=== PATIENT | female | born 1970 | race Hispanic/Latino ===

== ENCOUNTER 2019-04-03 18:23 | Emergency (ER) | payer OTHER, SELFPAY ==
[2019-04-03] MEDS ORDERED: KETOROLAC 30 MG/ML INJ ONE (19:34)
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
[2019-04-03 19:57] VITALS: BP 135/87; TEMP 97.9; O2SAT 98
== END 2019-04-03 19:46 | disposition home or self-care (01) ==
LOC: ER 18:23
DX: S13.9XXA Sprain of joints and ligaments of unspecified parts of neck, initial encounter (principal); M54.5 Low back pain; M62.830 Muscle spasm of back; V49.9XXA Car occupant (driver) (passenger) injured in unspecified traffic accident, initial encounter; Z88.6 Allergy status to analgesic agent; Z88.1 Allergy status to other antibiotic agents; Z88.0 Allergy status to penicillin
CPT/HCPCS: 72040; 96372; 99283

== ENCOUNTER 2020-11-23 16:53 | Observation (INO) | payer OTHER, SELFPAY ==
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
[2020-11-23 19:26] LABS: Protime INR 0.88
[2020-11-23 19:28] LABS: Absolute Lymphocytes (CBC) 2.5 K/uL (0.7-4.9); Basophils % 0.9 % (0-1.3); Hematocrit 40.3 % (36.0-45.0); Lymphocytes % 33.4 % (15.3-44.8); RBC Red Blood Cell Count 4.61 M/uL (3.86-4.86)
[2020-11-23 19:35] LABS: ALT/SGPT 29 U/L (12-78); AST/SGOT 16 U/L (15-37); Albumin 3.6 g/dL (3.4-5.0); Alkaline Phosphatase 91 U/L (45-117); BUN Blood Urea Nitrogen 12 mg/dL (7-18); Bicarbonate 28 mmol/L (21-32); Bilirubin Direct < 0.1 mg/dL (0-0.2); Bilirubin Total 0.2 mg/dL (0.2-1.0); Glucose Level 104 mg/dL (74-106); Lipase 99 U/L (73-393); Magnesium 2.3 mg/dL (1.8-2.4); NT PRO-BNP 65 pg/mL (<125); Potassium 3.8 mmol/L (3.5-5.1); Protein, Total 7.4 g/dL (6.4-8.2); Sodium Level 143 mmol/L (136-145); Troponin (Emerg Dept Use Only) < 0.02 ng/mL (0.0-0.045)
[2020-11-23] MEDS ORDERED: NITROGLYCERIN 0.4 MG/TAB SL ONE (20:08)
[2020-11-23] MEDS ORDERED: ASPIRIN 81 MG CHEWABLE TABLET ONE (20:08)
[2020-11-23] MEDS ORDERED: METOPROLOL TAR 25 MG TAB ONE (20:55)
--- NOTE | 2020-11-23 21:12 | ER ---
Nurse's Notes [facility] Name: Haylee Bethea Age: 50 yrs Sex: Female : 1970 Arrival Date: 11/23/2020 Time: 17:03 Bed 17 Private MD: Diagnosis: Angina pectoris, unspecified Presentation: 11/23 17:03 Chief complaint: Patient states: Midsternal chest pain radiating to the L arm, L ca1 shoulder started x 3 days. Coronavirus screen: Client denies travel out of the [place] in the last 14 days. At this time, the client does not indicate any symptoms associated with coronavirus-19. Ebola Screen: Patient negative for fever greater than or equal to 101.5 degrees Fahrenheit, and additional compatible Ebola Virus Disease symptoms Patient denies exposure to infectious person. Patient denies travel to an Ebola-affected area in the 21 days before illness onset. No symptoms or risks identified at this time. Initial Sepsis Screen: Does the patient meet any 2 criteria? No. Patient's initial sepsis screen is negative. Does the patient have a suspected source of infection? No. Patient's initial sepsis screen is negative. Risk Assessment: Do you want to hurt yourself or someone else? Patient reports no desire to harm self or others. Onset of symptoms was November 23, 2020. 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 - Social history:: Smoking status: Patient denies any tobacco usage or history of. Screenin:09 Abuse screen: Denies threats or abuse. Nutritional screening: No deficits noted. jd3 Tuberculosis screening: No symptoms or risk factors identified. Fall Risk Ambulatory Aid- None/Bed Rest/Nurse Assist (0 pts). Gait- Normal/Bed Rest/Wheelchair (0 pts) Mental Status- Oriented to own ability (0 pts). Total Alfonso Fall Scale indicates No Risk (0-24 pts). Assessment: 18:55 General: Appears in no apparent distress. uncomfortable, Behavior is calm, cooperative, jd3 appropriate for age. Pain: Complains of pain in chest Pain radiates to back and left shoulder and left arm Quality of pain is described as pressure, Pain began 2-3 days ago. Neuro: Level of Consciousness is awake, alert, obeys commands, Oriented to person, place, time, situation. Cardiovascular: Capillary refill < 3 seconds Thorax Rhythm is regular. Respiratory: Reports shortness of breath on exertion Airway is patent Respiratory effort is even, unlabored, Respiratory pattern is regular, symmetrical, Denies cough. GI: Reports nausea, Patient currently denies vomiting. : No signs and/or symptoms were reported regarding the genitourinary system. EENT: No signs and/or symptoms were reported regarding the EENT system. Derm: Skin is intact, Skin is dry, Skin is normal, Skin temperature is warm. Musculoskeletal: Circulation, motion, and sensation intact. Range of motion: intact in all extremities. 20:39 Reassessment: reports pain is back, 5/10, provider notified, received VO to repeat em nitro x 1. 21:21 Reassessment: Patient appears in no apparent distress at this time. Patient and/or em family updated on plan of care and expected duration. Pain level reassessed. Patient is alert, oriented x 3, equal unlabored respirations, skin warm/dry/pink. Patient denies pain at this time. Patient states feeling better. Patient states symptoms have improved. Vital Signs: 17:03 BP 168 / 85; Pulse 88; Resp 16 S; Temp 97.8(TE); Pulse Ox 98% on R/A; Weight 86.64 kg ca1 (R); Height 5 ft. 11 in. (180.34 cm) (R); Pain 6/10; 19:07 BP 162 / 68; Pulse 79; Resp 17 S; Pulse Ox 98% on R/A; jd3 19:40 BP 175 / 77; Pulse 78; Resp 18; Pulse Ox 99% on R/A; em 20:40 BP 170 / 72; Pulse 79; Resp 18; Pulse Ox 98% on R/A; Pain 5/10; em 21:21 BP 139 / 62; Pulse 78; Resp 20; Pulse Ox 98% on R/A; Pain 0/10; em 22:00 BP 158 / 74; Pulse 75; Resp 18; Temp 98.6(O); Pulse Ox 99% on R/A; Pain 0/10; em 17:03 Body Mass Index 26.64 (86.64 kg, 180.34 cm) ca1 ED Course: 17:03 Patient arrived in ED. am2 17:05 Triage completed. ca1 17:07 Arm band placed on right wrist. ca1 18:35 Sergey Santizo PA is PHCP. cp 18:35 Sergey Barrett MD is Attending Physician. cp 18:47 Akira Serrano, CHARAN is Primary Nurse. jd3 18:52 XRAY Chest (1 view) In Process Unspecified. EDMS 19:00 Inserted saline lock: 20 gauge in right antecubital area, using aseptic technique. jd3 Blood collected. Patient maintains SpO2 saturation greater than 95% on room air. 19:10 Patient has correct armband on for positive identification. Placed in gown. Bed in low jd3 position. Call light in reach. Side rails up X 1. traffic monitor specialist on. Pulse ox on. NIBP on. 20:36 Primary Nurse role handed off by Akira Serrano RN sg 20:39 Raymond Tyler, CHARAN is Primary Nurse. em 21:11 Milton Sims MD is Hospitalizing Provider. cp 22:24 No provider procedures requiring assistance completed. Patient admitted, IV remains in em place. Administered Medications: 19:50 Drug: Nitroglycerin 0.4 mg Route: Sublingual; em 19:55 Follow up: Response: No adverse reaction; Marked relief of symptoms; Pain is decreased em 19:50 Drug: Aspirin Chewable Tablet 324 mg Route: PO; em 19:55 Follow up: Response: No adverse reaction em 20:39 Drug: Metoprolol 25 mg Route: PO; em 21:21 Follow up: Response: No adverse reaction em 20:44 Drug: Nitroglycerin 0.4 mg Route: Sublingual; em 21:21 Follow up: Response: No adverse reaction; Marked relief of symptoms; Pain is decreased em Outcome: 21:12 Decision to Hospitalize by Provider. cp 22:24 Admitted to Tele accompanied by tech, via wheelchair, room 423, with chart, Report em called to CHARAN Zurita 22:24 Condition: improved 22:24 Instructed on the need for admit, Demonstrated understanding of instructions. 22:26 Patient left the ED. em Signatures: Dispatcher [employer] Geovany Powers, RN RN Raymond Maurer RN RN em Sergey Santizo PA PA cp Moreno, Amanda am2 Davies, Jonathon, RN RN jd3 Violette Gallegos RN RN ca1
--- NOTE | 2020-11-23 21:13 | EDPHYS ---
Physician Documentation [facility] Name: Haylee Bethea Age: 50 yrs Sex: Female : 1970 Arrival Date: 11/23/2020 Time: 17:03 Bed 17 Private MD: ED Physician Sergey Barrett HPI: 11/23 19:00 This 50 yrs old Female presents to ER via Ambulatory with complaints of Chest cp Pain. 19:00 The patient or guardian reports chest pain that is located primarily in the substernal cp area. 19:00 Onset: 3 day(s) ago. The pain radiates to both shoulders, back. Associated signs and cp symptoms: Pertinent positives: shortness of breath, Pertinent negatives: abdominal pain, cough, diaphoresis, lower extremity pain, lower extremity swelling, recent travel. The chest pain is described as a pressure. Duration: The patient or guardian reports a single episode, that is still ongoing, and unchanged. STUMP BLOWER: 17:07 LMP N/A - Irregular menses ca1 Historical: - Allergies: 17:07 Bactrim; ca1 17:07 PENICILLINS; ca1 17:07 Sulfa (Sulfonamide Antibiotics); ca1 - Home Meds: 17:07 Aspirin Oral [Active]; ca1 - PMHx: 17:07 None; ca1 - PSHx: 17:07 Cholecystectomy; ca1 - Immunization history:: Pneumococcal vaccine is not up to date, Flu vaccine is up to date. - Social history:: Smoking status: Patient denies any tobacco usage or history of. ROS: 19:05 Constitutional: Negative for body aches, chills, fever, poor PO intake. cp 19:05 Eyes: Negative for injury, pain, redness, and discharge. cp 19:05 ENT: Negative for ear pain, sore throat, difficulty swallowing, difficulty handling secretions. 19:05 Cardiovascular: Positive for chest pain, of the substernal, Negative for edema, palpitations. 19:05 Respiratory: Positive for shortness of breath, at rest. Negative for cough, wheezing. 19:05 Abdomen/GI: Negative for abdominal pain, nausea, vomiting, and diarrhea. 19:05 Back: Positive for radiated pain, of the thoracic area. 19:05 Skin: Negative for rash. 19:05 Neuro: Negative for altered mental status, headache, syncope, weakness. 19:05 All other systems are negative. Exam: 17:10 ECG was reviewed by the Attending Physician. cp 19:10 Constitutional: The patient appears in no acute distress, alert, awake, cp non-diaphoretic, non-toxic, well developed, well nourished. 19:10 Head/Face: Normocephalic, atraumatic. cp 19:10 Eyes: Periorbital structures: appear normal, Conjunctiva: normal, no exudate, no injection, Sclera: no appreciated abnormality, Lids and lashes: appear normal, bilaterally. 19:10 ENT: External ear(s): are unremarkable, Nose: is normal, Mouth: Lips: moist, Oral mucosa: pink and intact, moist, Posterior pharynx: Airway: no evidence of obstruction, patent. 19:10 Neck: ROM/movement: is normal, is supple, without pain, no range of motions limitations, no nuchal rigidity. 19:10 Chest/axilla: Inspection: normal, Palpation: is normal, no crepitus, no tenderness. 19:10 Cardiovascular: Rate: normal, Rhythm: regular, Pulses: Pulses are 2+ in right radial artery and left radial artery. Edema: is not appreciated, JVD: is not appreciated. 19:10 Respiratory: the patient does not display signs of respiratory distress, Respirations: normal, no use of accessory muscles, no retractions, labored breathing, is not present, Breath sounds: are clear throughout, no decreased breath sounds, no stridor, no wheezing. 19:10 Abdomen/GI: Inspection: abdomen appears normal, Palpation: abdomen is soft and non-tender, in all quadrants. 19:10 Back: pain, that is mild, of the thoracic area, ROM is normal. 19:10 Skin: no rash present. 19:10 Neuro: Orientation: to person, place \\T\\ time. Mentation: is normal, Motor: moves all fours, strength is normal, Sensation: is normal. Vital Signs: 17:03 BP 168 / 85; Pulse 88; Resp 16 S; Temp 97.8(TE); Pulse Ox 98% on R/A; Weight 86.64 kg ca1 (R); Height 5 ft. 11 in. (180.34 cm) (R); Pain 6/10; 19:07 BP 162 / 68; Pulse 79; Resp 17 S; Pulse Ox 98% on R/A; jd3 19:40 BP 175 / 77; Pulse 78; Resp 18; Pulse Ox 99% on R/A; em 20:40 BP 170 / 72; Pulse 79; Resp 18; Pulse Ox 98% on R/A; Pain 5/10; em 21:21 BP 139 / 62; Pulse 78; Resp 20; Pulse Ox 98% on R/A; Pain 0/10; em 22:00 BP 158 / 74; Pulse 75; Resp 18; Temp 98.6(O); Pulse Ox 99% on R/A; Pain 0/10; em 17:03 Body Mass Index 26.64 (86.64 kg, 180.34 cm) ca1 MDM: 18:38 Patient medically screened. cp 21:15 Data reviewed: vital signs, nurses notes, lab test result(s), EKG, radiologic studies, cp plain films. 21:15 Differential diagnosis: abnormal EKG, acute myocardial infarction, pleurisy, pneumonia, cp pneumothorax, pulmonary embolus, stable angina, unstable angina. The patient was given aspirin in the Emergency Department. Counseling: I had a detailed discussion with the patient and/or guardian regarding: the historical points, exam findings, and any diagnostic results supporting the discharge/admit diagnosis, the presence of at least one elevated blood pressure reading (>120/80) during this emergency department visit, lab results, radiology results, the need for further work-up and treatment in the hospital. Response to treatment: chest pain resolved, and as a result, I will admit patient. Physician consultation: A Levi MOREIRA was called at 21:10, was contacted at 21:10, regarding admission, to the telemetry unit. patient's condition, would like consultation with Dr. DR Buchanan, would like further tests performed, Nuclear stress test ordered for the morning. 11/23 18:38 Order name: Basic Metabolic Panel; Complete Time: 19:47 cp 11/23 19:48 Interpretation: Normal except: CL 109; CA 8.3. cp 11/23 18:38 Order name: CBC with Diff; Complete Time: 19:47 cp 11/23 18:38 Order name: LFT's; Complete Time: 19:47 cp 11/23 18:38 Order name: Magnesium; Complete Time: 19:47 cp 11/23 18:38 Order name: NT PRO-BNP; Complete Time: 19:47 cp / 18:38 Order name: PT-INR; Complete Time: 19:47 cp 11/23 18:38 Order name: Troponin (emerg Dept Use Only); Complete Time: 19:47 cp / 18:38 Order name: XRAY Chest (1 view); Complete Time: 19:47 cp 11/23 18:38 Order name: Lipase; Complete Time: 19:47 cp 11/23 18:58 Order name: COVID-19 : Document "Date of Symptom Onset" if Symptomatic. cp 11/23 19:49 Order name: LAB Add On cp 11/23 19:49 Order name: D-Dimer cp 11/23 17:07 Order name: EKG; Complete Time: 17:08 ca1 11/23 17:07 Order name: EKG - Nurse/Tech; Complete Time: 17:07 ca1 11/23 18:38 Order name: Cardiac monitoring; Complete Time: 18:47 cp 11/23 18:38 Order name: IV Saline Lock; Complete Time: 19:06 cp 11/23 18:38 Order name: Labs collected and sent; Complete Time: 19:06 cp 11/23 18:38 Order name: O2 Per Protocol; Complete Time: 18:47 cp 11/23 18:38 Order name: O2 Sat Monitoring; Complete Time: 18:47 cp EC:10 Rate is 82 beats/min. Rhythm is regular. TN interval is normal. QRS interval is normal. cp QT interval is normal. T waves are Inverted in lead aVR. Interpreted by me. Reviewed by me. Administered Medications: 19:50 Drug: Nitroglycerin 0.4 mg Route: Sublingual; em 19:55 Follow up: Response: No adverse reaction; Marked relief of symptoms; Pain is decreased em 19:50 Drug: Aspirin Chewable Tablet 324 mg Route: PO; em 19:55 Follow up: Response: No adverse reaction em 20:39 Drug: Metoprolol 25 mg Route: PO; em 21:21 Follow up: Response: No adverse reaction em 20:44 Drug: Nitroglycerin 0.4 mg Route: Sublingual; em 21:21 Follow up: Response: No adverse reaction; Marked relief of symptoms; Pain is decreased em Disposition: 11/24 09:46 Co-signature as Attending Physician, Sergey Barrett MD I agree with the assessment and hong plan of care. Disposition: 11/23/20 21:12 Hospitalization ordered by Milton Sims for Observation. Preliminary diagnosis is Angina pectoris, unspecified. - Bed requested for Telemetry/MedSurg (observation). - Status is Observation. em - Condition is Stable. - Problem is new. - Symptoms have improved. Signatures: Dispatcher [employer] EDMS Love Christensen RN RN Sergey Barrett MD MD cha Munoz, Edgar, RN RN em Page, Corey, PA PA cp Acob, Violette RN RN ca1 Corrections: (The following items were deleted from the chart) 11/23 19:48 19:47 Normal except: CL 109. cp cp 21:48 21:12 Hospitalization Ordered by A Levi MOREIRA for Observation. Preliminary diagnosis is mw Angina pectoris, unspecified. Bed requested for Telemetry/MedSurg (observation). Status is Observation. Condition is Stable. Problem is new. Symptoms have improved. cp 22:06 21:48 11/23/2020 21:12 Hospitalization Ordered by A Levi MOREIRA for Observation. Preliminary diagnosis is Angina pectoris, unspecified. Bed requested for Telemetry/MedSurg (observation). Status is Observation. Condition is Stable. Problem is new. Symptoms have improved. 22:26 22:06 11/23/2020 21:12 Hospitalization Ordered by A Levi MOREIRA for Observation. em Preliminary diagnosis is Angina pectoris, unspecified. Bed requested for Telemetry/MedSurg (observation). Status is Observation. Condition is Stable. Problem is new. Symptoms have improved.
[2020-11-23] MEDS ORDERED: ENOXAPARIN 40 MG/0.4 ML SQ ONE (21:49)
[2020-11-23] MEDS: MORPHINE 4 MG/ML SYR IV PRN (23:37)
[2020-11-23] MEDS: ONDANSETRON 4 MG/2 ML VIAL IV PRN (23:37)
[2020-11-24 00:10] VITALS: BMI 40.2
[2020-11-24] MEDS ORDERED: AMLODIPINE 5 MG TAB PO ONE (00:10)
[2020-11-24 03:24] LABS: Absolute Lymphocytes (CBC) 3.2 K/uL (0.7-4.9); Basophils % 0.9 % (0-1.3); Lymphocytes % 40.1 % (15.3-44.8); RBC Red Blood Cell Count 4.37 M/uL (3.86-4.86)
[2020-11-24 03:58] LABS: BUN Blood Urea Nitrogen 10 mg/dL (7-18); Bicarbonate 31 mmol/L (21-32); Glucose Level 93 mg/dL (74-106); Potassium 3.6 mmol/L (3.5-5.1); Sodium Level 142 mmol/L (136-145)
[2020-11-24] MEDS: METOPROLOL XL 25 MG TAB PO SCH (06:00)
[2020-11-24] MEDS: AMLODIPINE 5 MG TAB PO SCH (08:00)
[2020-11-24] MEDS: ASPIRIN EC 81 MG TAB PO SCH (08:00)
[2020-11-24 08:20] LABS: Thyroid Stimulating Hormone 4.9 uIU/mL (0.360-3.740)
[2020-11-24] MEDS ORDERED: REGADENOSON 0.4 MG/5 ML SYR IV ONE (08:50)
--- NOTE | 2020-11-24 11:53 | RAD REPORT ---
EXAM DESCRIPTION: NM - Rest Stress Cardiac Imaging - 11/24/2020 11:44 am CLINICAL HISTORY: Chest pain. COMPARISON: None. TECHNIQUE: The patient was administered 10.5 mCi of Tc 99m Sestamibi prior to resting SPECT imaging of the heart. The patient was then administered 30.6 MCi of Tc 99m Sestamibi following exercise or ph armacologic stress. Multiplanar SPECT images were reviewed. FINDINGS: There is uniformity of radiotracer uptake involving the entire left ventricular myocardiu m on rest and stress images. The left ventricular ejection fraction equals 68% IMPRESSION: Negative for a myocardial perfusion defect
[2020-11-24] MEDS: MORPHINE 4 MG/ML SYR IV PRN ×2 (15:16→21:26)
[2020-11-24] MEDS: ONDANSETRON 4 MG/2 ML VIAL IV PRN ×2 (15:16→21:26)
--- NOTE | 2020-11-24 22:46 | HP ---
Date of Admission: 11/24/2020 Chief Complaint: Chest pain. 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 The patient describes her chest pain as pressure that was in the precordial region and her pain radiates to her left arm. She had little bit shortness of breath, little diaphoresis with this, so she came into the emergency room. Her blood pressure has been elevated in last 2 days when she checks it at home. She normally does not check her blood pressure, so she does not know what her blood pressure was prior to onset of this chest pain. She has taken aspirin at home and after she came to the ER, she was evaluated and she was admitted to the hospital. When I saw her this morning, she was symptom free. She was given metoprolol in the emergency room yesterday and during nighttime, her blood pressure was elevated and when nurse contacted me, amlodipine 5 mg maintenance dose was ordered during nighttime for blood pressure control. Allergies: PENICILLIN CAUSING ANAPHYLACTIC REACTION AND ALSO ALLERGIC TO BACTRIM. Medications: She does not take any medications at home except last 2 days, she has taken aspirin. Otherwise, she does not take any prescription medications. Review of Systems: Cardiovascular: As mentioned above. All other systems reviewed and negative. Social History: Negative for smoking. Use of alcohol very rarely. She has 1 drink. Family History: Father and mother with hypertension. Father with hyperlipidemia. Past Surgical History: Cholecystectomy. Past Medical History: Negative. Physical Examination: Vital Signs: This morning, temperature 97.5, pulse 66, respiratory rate 18, blood pressure 173/77, oxygen saturation 97%. Height 4 feet 11 inches, weight 199 pounds. General: Awake, alert, oriented, not in distress. HEENT: Head atraumatic, normocephalic. Conjunctivae nonerythematous. Sclerae white. Mouth, no thrush or edema noted. Ears/Nose, no mass, lesion, discharge noted. Neck: Supple. No JVD, lymph nodes, bruit, thyromegaly noted. Lungs: Bilateral good equal air entry. Clear to auscultation. No rhonchi. No rales. Heart: Normal heart sounds. No murmur or gallop. Abdomen: Soft. Bowel sounds normal. No guarding, rigidity, tenderness, mass, hepatosplenomegaly, distention, or bruit noted. Extremities: No leg edema. No calf tenderness. Skin: No rash, ulcer, cellulitis. Lymphatics: No lymph node enlargement in neck, supraclavicular, infraclavicular region. Neuro: No focal neurological deficit. Chest: Unremarkable. External Genitalia: Deferred. Rectal: Deferred. Laboratory Data: Yesterday, white count 7.5, hemoglobin 13.2, and platelet count of 240. This morning, white count 8, hemoglobin 12.5, and platelet count of 212. INR 0.88. D-dimer 443. Yesterday, sodium 143, potassium 3.8, chloride 109, bicarb 28, BUN 12, creatinine 0.60, and glucose 104. Liver function tests unremarkable. Troponin less than 0.02 x3. Lipase 99. COVID-19 test negative. EKG showed normal sinus rhythm, no acute ST-T changes. Chest x-ray showed no acute intrathoracic changes. Impression: 1. Chest pain. 2. Hypertension. Plan: We will go ahead and admit the patient to hospital for further evaluation and management of this problem. The patient's OH has been ruled out. We will go ahead and consult Cardiology. We will get a stress test and echocardiogram done today. Monitor blood pressure given the hypertensive medication, which is amlodipine and metoprolol per order. Continue aspirin and I will see tomorrow for followup. Details and plan of treatment discussed with the patient. DERRICK/ADRIANO Voice ID: [id number] MTDBernice
--- NOTE | 2020-11-25 04:36 | EKG ---
Test Date: 2020-11-23 Test Time: 16:03:40 Waiter/Waitress Bar: FRANCK MEASUREMENT RESULTS: Intervals: Rate: 82 AK: 134 QRSD: 92 QT: 386 QTc: 450 [place]: P: 57 AK: 134 QRS: -5 T: 61 INTERPRETIVE STATEMENTS: Normal sinus rhythm Normal ECG No previous ECG available for comparison Electronically Signed On 11-25-20 04:32:39 CDT by Quoc Buchanan
[2020-11-25 05:40] VITALS: O2SAT 98
[2020-11-25] MEDS: METOPROLOL XL 25 MG TAB PO SCH (06:08)
[2020-11-25] MEDS: ASPIRIN EC 81 MG TAB PO SCH (08:11)
[2020-11-25] MEDS: AMLODIPINE 5 MG TAB PO SCH (08:12)
[2020-11-25 08:13] VITALS: BP 137/68
--- NOTE | 2020-11-25 08:29 | ECHO ---
HEIGHT: 4 ft 11 in WEIGHT: 199 lb 3.2 oz DATE OF STUDY: 11/24/[address]: Shashi Sims MD 2-DIMENSIONAL: YES M.MODE: YES DOPPLER: YES COLOR FLOW: YES TDS: NO PORTABLE: NO DEFINITY: NO BUBBLE STUDY: NO DIAGNOSIS: CHEST PAIN CARDIAC HISTORY: CATHERIZATION: NO SURGERY: NO PROSTHETIC VALVE: NO PACEMAKER: NO MEASUREMENTS (cm) DIASTOLIC (NORMALS) SYSTOLIC (NORMALS) IVSd 1.0 (0.6-1.2) LA Diam 2.8 (1.9-4.0) LVEF 70% LVIDd 4.1 (3.5-5.7) LVIDs 2.5 (2.0-3.5) %FS 39% LVPWd 1.0 (0.6-1.2) Ao Diam 2.4 (2.0-3.7) 2 DIMENSIONAL ASSESSMENT: RIGHT ATRIUM: NORMAL LEFT ATRIUM: NORMAL RIGHT VENTRICLE: NORMAL LEFT VENTRICLE: NORMAL TRICUSPID VALVE: NORMAL MITRAL VALVE: NORMAL PULMONIC VALVE: NORMAL AORTIC VALVE: NORMAL PERICARDIAL EFFUSION: NONE AORTIC ROOT: NORMAL LEFT VENTRICULAR WALL MOTION: NORMAL DOPPLER/COLOR FLOW: TRACE TRICUSPID REGURGITATION. COMMENTS: TRACE TRICUSPID REGURGITATION. NO EFFUSION. NORMAL LEFT VENTRICULAR SIZE AND FUNCTION. NO WALL MOTION ABNORMALITY. TECHNOLOGIST: Maryann FLORES
--- NOTE | 2020-11-25 08:53 | TREADPHA ---
DX: CHEST PAIN Date of Study: 11/24/2020 Ht: 4' 11 " Wt: 199 lb 3.2 oz Consulting Physician: DANIEL MEDICATIONS: ASPIRIN, NORVASC, TROPROL XL HISTORY: HYPERTENSION PHYSICIAL EXAMINATION: RESTING B.P.: 147/79 RESTING H.R.: 66 RESTING EKG: SINUS RHYTHM. PROTOCOL: LEXISCAN EXERCISE TIME: 3:30 B.P. AT PEAK STRESS: 167/63 IMPRESSION: SEE NUCLEAR REPORT.
[2020-11-25 09:30] VITALS: TEMP 98
--- NOTE | 2020-11-26 05:24 | DS ---
Date of Discharge: 11/25/2020 Disposition: The patient was discharged to go home. Physical Examination: HEENT: Unremarkable. Lungs: Clear to auscultation. Heart: Sounds normal. Abdomen: Soft. Bowel sounds normal. No guarding, rigidity, tenderness, or distention. Extremities: No leg edema. Discharge Medications/instructions: 1.Continue all prior home medications. 2.Amlodipine 5 mg daily and Toprol-XL 25 mg daily. 3.Follow up at my office week after next. Final Diagnoses: 1.Chest pain. 2.Hypertension. 3.Hyperlipidemia. 4.Hypothyroidism. Hospital Course: A 50-year-old female patient admitted to the hospital with chest pain. Please see dictated H and P for more information. The patient was evaluated in the ER. She was admitted to the hospital. Her EKG was normal. Chest x-ray unremarkable. TN was ruled out by getting serial cardia c enzymes. Yesterday morning, we did Lexiscan stress test, result came back negative for any stress- induced ischemia. Echocardiogram was done, result pending. The patient was started on blood pressur e medication, metoprolol, and amlodipine, and this morning her blood pressure is under much better co ntrol. Her chest pain symptom has resolved and no other new complaints or problems reported. The saulo allen was discharged to go home in stable condition. She was made aware of slightly abnormal TSH, wh ich I would not advise any medication for it at this point, and slightly elevated cholesterol values. Results were discussed and lifestyle changes recommended which is diet, exercise, and weight. If t his will not help to improve her cholesterol, we will have to consider medication on an outpatient ba sis. Laboratory Data: Upon admission, white count 7.5, hemoglobin 13.2, platelets 240. Sodium 143, potas sium 3.8, chloride 109, bicarb 28, BUN 12, creatinine 0.60, glucose 104. Liver function tests unrema rkable. Troponin less than 0.02. Triglyceride 175, total cholesterol 202, LDL 115, HDL 52, TSH 4.9. COVID-19 test negative. DERRICK/MODL Voice ID: [id number] Report ID: [id number]
--- NOTE | 2020-11-29 10:21 | CON ---
Date of Consultation: 11/25/2020 Reason For Consultation: Chest pain. History Of Present Illness: Ms. Bethea is a 50-year-old woman without really any past significant medical history, came in with some chest pain that is partially pressure and some sharp chest pain, but that has been going on for approximately 2-3 days with some nausea, but no vomiting, no diaphores is, no shortness of breath. She does have a family history of heart disease, otherwise no significan t risk factors. Denied PND, orthopnea, pedal edema. Had some palpitations, but no syncope. Denied any fever or chills or cough. Past Medical History: Otherwise as stated above. Medications: At home include aspirin and vitamin. Review of Systems: Negative. Social History: Negative. Allergies: INCLUDE PENICILLIN AND SULFA. Physical Examination: That was done by Dr. Sims was unremarkable. Diagnostic Data: Normal. She actually had already had an echocardiogram and a stress test that were normal. Impression And Plan: Atypical chest pain, most likely gastroesophageal reflux disease in nature. No rmal echo, normal EKG, normal stress test. I am comfortable with the patient going home today and I will see her as an outp atient on an as-needed basis. LUDWIN/ADRIANO Voice ID: [id number] Report ID: [id number]
== END 2020-11-25 09:45 | disposition home or self-care (01) ==
LOC: ER 16:53 → 4TH 22:16
PROVIDERS: ADMIT Internal Medicine; ATTEND Internal Medicine
DX: R07.9 Chest pain, unspecified (principal); I10 Essential (primary) hypertension; E78.5 Hyperlipidemia, unspecified; E03.9 Hypothyroidism, unspecified; Z20.822 Contact with and (suspected) exposure to COVID-19
CPT/HCPCS: 93005; 93017; 93306; 85025 ×2; 80048 ×2; 36415; 83735; 85610; 80061; 85379; 80076; 84443; 84484 ×3; 84439; 83690; 83880; 71045; 78452; 99285; U0003; J1650; J2785; J2405 ×3; A9500; G0378

== ENCOUNTER 2021-03-14 16:51 | Emergency (ER) | payer OTHER ==
[2021-03-14] MEDS ORDERED: HYDROCODONE/APAP 10/325 TAB ONE (18:10)
--- NOTE | 2021-03-14 19:23 | ER ---
Nurse's Notes [facility] Name: Haylee Gamboa Age: 50 yrs Sex: Female : 1970 Arrival Date: 03/14/2021 Time: 16:53 Bed 24 Private MD: Shashi Sims Diagnosis: Sprain of ankle Presentation: 03/14 17:27 Chief complaint: Patient states: R ankle pain since Monday evening. Unable to put ca1 pressure on R ankle. Cannot recall any recent injury to the R ankle. Coronavirus screen: Client denies travel out of the [place] in the last 14 days. At this time, the client does not indicate any symptoms associated with coronavirus-19. Ebola Screen: Patient negative for fever greater than or equal to 101.5 degrees Fahrenheit, and additional compatible Ebola Virus Disease symptoms Patient denies exposure to infectious person. Patient denies travel to an Ebola-affected area in the 21 days before illness onset. No symptoms or risks identified at this time. Initial Sepsis Screen: Does the patient meet any 2 criteria? No. Patient's initial sepsis screen is negative. Does the patient have a suspected source of infection? No. Patient's initial sepsis screen is negative. Risk Assessment: Do you want to hurt yourself or someone else? Patient reports no desire to harm self or others. Onset of symptoms was March 14, 2021. 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 - Social history:: Smoking status: Patient denies any tobacco usage or history of. Screenin:33 Abuse screen: Denies threats or abuse. Nutritional screening: No deficits noted. ll1 Tuberculosis screening: No symptoms or risk factors identified. Fall Risk Ambulatory Aid- Crutches/Cane/Walker (15 pts). Gait- Impaired (20 pts.). Total Alfonso Fall Scale indicates Low Risk Score (25-44 pts). Fall prevention measures have been instituted. Side Rails Up X 2 Frequent Obs/Assesments occuring As available Patient and Family Educated on Fall Prevention Program and strategies. Assessment: 17:32 General: Appears in no apparent distress. Behavior is calm, cooperative, appropriate ll1 for age. Pain: Complains of pain in R ankle Quality of pain is described as aching, Aggravated by increased activity. Musculoskeletal: Circulation, motion, and sensation intact. Capillary refill < 3 seconds, Range of motion: intact in all extremities, Tenderness present in R ankle Reports pain in R ankle. 19:20 Reassessment: Patient and/or family updated on plan of care and expected duration. Pain ea level reassessed. Patient is alert, oriented x 3, equal unlabored respirations, skin warm/dry/pink. 19:35 Reassessment: Patient and/or family updated on plan of care and expected duration. Pain ea level reassessed. Patient is alert, oriented x 3, equal unlabored respirations, skin warm/dry/pink. Discharge instruction given to patient verbalized the understanding of instruction. Vital Signs: 17:27 BP 118 / 51; Pulse 75; Resp 18 S; Temp 97.5(TE); Pulse Ox 99% on R/A; Weight 87.09 kg ca1 (R); Height 4 ft. 11 in. (149.86 cm) (R); Pain 9/10; 17:27 Body Mass Index 38.78 (87.09 kg, 149.86 cm) ca1 ED Course: 16:53 Patient arrived in ED. mr 16:53 Shashi Sims MD is Private Physician. mr 17:29 Triage completed. ca1 17:30 Arm band placed on right wrist. ca1 17:32 Natalee Wei FNP-C is PHCP. kb 17:32 Sergey Barrett MD is Attending Physician. kb 17:32 Nguyen Peters, CHARAN is Primary Nurse. ll1 17:32 Patient placed in an exam room, on a stretcher. ll1 17:33 Patient has correct armband on for positive identification. Bed in low position. Call ll1 light in reach. Side rails up X 1. Cardiac monitoring not applicable on this patient. 18:23 Ankle Right 3 View XRAY In Process Unspecified. EDMS 19:34 No provider procedures requiring assistance completed. Patient did not have IV access ea during this emergency room visit. Administered Medications: 17:52 Drug: [place] (HYDROcodone-acetaminophen) 10 mg-325 mg 1 tabs Route: PO; ll1 19:03 Follow up: Response: No adverse reaction; Pain is decreased; RASS: Alert and Calm (0) ll1 Outcome: 19:22 Discharge ordered by MD. blackwell 19:35 Discharged to home ambulatory, with crutches, with family. hernando 19:35 Condition: stable 19:35 Discharge instructions given to patient, Instructed on discharge instructions, follow up and referral plans. medication usage, Demonstrated understanding of instructions, follow-up care, medications, Prescriptions given X 2. 19:43 Patient left the ED. tt3 Signatures: Dispatcher [employer] EDMS Natalee Wei, ARABELLA ESPITIA-Alix Chirinos mr ContrerasRosanna, RN RN Violette Molina RN Nguyen Delgado RN RN ll1 Drew Lomas tt3 Corrections: (The following items were deleted from the chart) 17:30 17:30 PMHx: None; ca1 ca1
--- NOTE | 2021-03-14 19:23 | EDPHYS ---
Physician Documentation [facility] Name: Haylee Gmaboa Age: 50 yrs Sex: Female : 1970 Arrival Date: 03/14/2021 Time: 16:53 Bed 24 Private MD: Shashi Sims ED Physician Sergey Barrett HPI: 03/14 19:10 This 50 yrs old Female presents to ER via Wheelchair with complaints of Ankle kb Injury. 19:10 The patient presents with decreased range of motion, pain, swelling, tenderness. The kb complaints affect the right ankle. Onset: The symptoms/episode began/occurred 5 day(s) ago. Context: The problem was sustained at an unknown location, resulted from an unknown cause, The mechanism of injury is unknown. The patient can partially bear weight on the affected extremity. the patient is able to ambulate. Associated signs and symptoms: Pertinent positives: swelling, Pertinent negatives: calf tenderness, fever, nausea, numbness, rash, tingling, vomiting, warmth, weakness. Modifying factors: The symptoms are alleviated by nothing, the symptoms are aggravated by weight bearing, movement. Severity of symptoms: At their worst the symptoms were moderate, in the emergency department the symptoms are unchanged. The patient has not experienced similar symptoms in the past. The patient has not recently seen a physician. 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 - Social history:: Smoking status: Patient denies any tobacco usage or history of. ROS: 19:08 Constitutional: Negative for fever, chills, and weight loss, Skin: Negative for injury, kb rash, and discoloration, Neuro: Negative for headache, weakness, numbness, tingling, and seizure. 19:08 MS/extremity: Positive for pain, swelling, tenderness, of the right ankle. Exam: 19:09 Constitutional: This is a well developed, well nourished patient who is awake, alert, kb and in no acute distress. Respiratory: Respirations even and unlabored. No increased work of breathing, no retractions or nasal flaring. Skin: Warm, dry with normal turgor. Normal color. Neuro: Awake and alert, GCS 15, oriented to person, place, time, and situation. Moves all extremities. Normal gait. Psych: Awake, alert, with orientation to person, place and time. Behavior, mood, and affect are within normal limits. 19:09 Musculoskeletal/extremity: Extremities: grossly normal except: noted in the right ankle: pain, swelling, tenderness, ROM: limited active range of motion due to pain, in the right ankle, Circulation is intact in all extremities. Sensation intact. Weight bearing: can bear weight with assistance only. Vital Signs: 17:27 BP 118 / 51; Pulse 75; Resp 18 S; Temp 97.5(TE); Pulse Ox 99% on R/A; Weight 87.09 kg ca1 (R); Height 4 ft. 11 in. (149.86 cm) (R); Pain 9/10; 17:27 Body Mass Index 38.78 (87.09 kg, 149.86 cm) ca1 MDM: 17:32 Patient medically screened. kb 19:08 Data reviewed: vital signs, nurses notes. Data interpreted: Pulse oximetry: on room air kb is 99 %. Interpretation: normal. Counseling: I had a detailed discussion with the patient and/or guardian regarding: the historical points, exam findings, and any diagnostic results supporting the discharge/admit diagnosis, radiology results, the need for outpatient follow up, a orthopedic surgeon, to return to the emergency department if symptoms worsen or persist or if there are any questions or concerns that arise at home. 03/14 17:36 Order name: Ankle Right 3 View XRAY kb 03/14 19:22 Order name: Walking boot; Complete Time: 19:34 kb 03/14 19:22 Order name: Crutches; Complete Time: 19:34 kb Administered Medications: 17:52 Drug: Crescent (HYDROcodone-acetaminophen) 10 mg-325 mg 1 tabs Route: PO; ll1 19:03 Follow up: Response: No adverse reaction; Pain is decreased; RASS: Alert and Calm (0) ll1 Disposition: 03/15 13:21 Co-signature as Attending Physician, Sergey Barrett MD I agree with the assessment and hong plan of care. Disposition Summary: 03/14/21 19:22 Discharge Ordered Location: Home kb Condition: Stable kb Diagnosis - Sprain of ankle kb Followup: kb - With: Emergency Department - When: As needed - Reason: Worsening of condition Followup: kb - With: Private Physician - When: 2 - 3 days - Reason: Recheck today's complaints, Continuance of care, Re-evaluation by your physician Discharge Instructions: - Discharge Summary Sheet kb - Ankle Sprain, [id number] kb Forms: - Medication Reconciliation Form kb - Thank You Letter kb - Antibiotic Education kb - Prescription Opioid Use kb - Work release form ea - Family Work Release ea Prescriptions: - Cyclobenzaprine 10 mg Oral Tablet - take 1 tablet by ORAL route every 8 hours As needed; 30 tablet; Refills: 0, kb Product Selection Permitted - Diclofenac Sodium 75 mg Oral tablet,delayed release (DR/EC) - take 1 tablet by ORAL route 2 times per day As needed; 30 tablet; Refills: 0, kb Product Selection Permitted Signatures: Dispatcher [employer] EDNatalee Palomo, ARABELLA ESPITIA-Sergey Driscoll MD MD cha Acob, Cheryl RN RN ca1 Nguyen Peters RN RN ll1 Corrections: (The following items were deleted from the chart) 03/14 17:30 17:30 PMHx: None; ca1 ca1
--- NOTE | 2021-03-14 19:46 | RAD REPORT ---
EXAM DESCRIPTION: RAD - Ankle Right 3 View - 03/14/2021 6:23 pm CLINICAL HISTORY: Pain;Swelling COMPARISON: No comparisons FINDINGS: No fracture, dislocation or periosteal reaction. No joint effusion seen. No joint space na rrowing. Moderate severity soft tissue swelling surrounds the ankle joint. Patient has a small planta r spur and minimal spurring at the Achilles attachment. IMPRESSION: Right ankle soft tissue swelling without fracture.
[2021-03-14 19:59] VITALS: BP 118/51; TEMP 97.5; O2SAT 99
== END 2021-03-14 19:43 | disposition home or self-care (01) ==
LOC: ER 16:51
DX: S93.401A Sprain of unspecified ligament of right ankle, initial encounter (principal); I10 Essential (primary) hypertension; Z88.0 Allergy status to penicillin; Z88.1 Allergy status to other antibiotic agents; Z88.2 Allergy status to sulfonamides
CPT/HCPCS: 99283

== ENCOUNTER 2021-08-31 06:52 | Emergency (ER) | payer OTHER ==
--- OUTSIDE RECORDS SUMMARY | 2021-08-31 06:55 | XMS REPORT | Continuity of Care Document ---
:1970 Author Organization [facility] t Address [address] [place] [address] [place] [id number] Care Team Providers Name Role Phone Unavailable Unavailable Unavailable Problems This patient has no known problems. Allergies, Adverse Reactions, Alerts This patient has no known allergies or adverse reactions. Medications This patient has no known medications. Procedures This patient has no known procedures. Encounters Start End Encounter Admission Attending Care Care Encounter Source Date/Time Date/Time Type Type Clinicians Facility Department ID 2021-04-06 2021-04-06 Outpatient [facility] [id number] [facility]00 [facility]00[facility] 2021-03-30 2021-03-30 Outpatient [facility] [id number] [facility] 2021-03-23 2021-03-23 Outpatient [facility] [id number] [facility] Results This patient has no known results.
[2021-08-31 07:34] LABS: Urine Blood Trace-intact (Negative); Urine Glucose Negative (Negative); Urine Protein Negative (Negative)
[2021-08-31] MEDS ORDERED: IBUPROFEN 400 MG TAB ONE (07:36)
[2021-08-31 08:29] LABS: SARS-COV-2 RT PCR POSITIVE (NEGATIVE)
[2021-08-31] MEDS ORDERED: CASIRIVIMAB/IMDEVIMAB 10 ML VIAL ONE (09:01)
[2021-08-31] MEDS ORDERED: ASPIRIN 81 MG CHEWABLE TABLET ONE (09:04)
[2021-08-31] MEDS ORDERED: AZITHROMYCIN 250 MG TAB ONE (09:04)
[2021-08-31] MEDS ORDERED: NA CHLORIDE 0.9% 1,000 ML ONE (09:05)
[2021-08-31] MEDS ORDERED: FAMOTIDINE 20 MG TAB ONE (09:05)
[2021-08-31] MEDS ORDERED: NA CHLORIDE 0.9% 500 ML ONE (09:05)
[2021-08-31] MEDS ORDERED: NA CHLORIDE 0.9% 250 ML ONE (09:10)
[2021-08-31 09:25] LABS: Absolute Lymphocytes (CBC) 0.6 K/uL (0.7-4.9); Basophils % 0.8 % (0-1.3); Hematocrit 38.7 % (36.0-45.0); Lymphocytes % 11.6 % (15.3-44.8); MPV 9.2 fL (7.6-11.3); RBC Red Blood Cell Count 4.44 M/uL (3.86-4.86)
[2021-08-31 09:34] LABS: Albumin 3.7 g/dL (3.4-5.0); Bilirubin Total 0.2 mg/dL (0.2-1.0); Potassium 3.8 mmol/L (3.5-5.1); Protein, Total 7.6 g/dL (6.4-8.2)
[2021-08-31 09:35] LABS: C-Reactive Protein 19.4 mg/L (<3.00); Ferritin 79.3 ng/mL (8-388)
[2021-08-31] MEDS ORDERED: METOPROLOL XL 50 MG TAB PO ONE (09:36)
[2021-08-31] MEDS ORDERED: ACETAMINOPHEN 500 MG TAB ONE (09:42)
--- NOTE | 2021-08-31 10:10 | EDPHYS ---
Physician Documentation [facility] Name: Haylee Gamboa Age: 51 yrs Sex: Female : 1970 Arrival Date: 08/31/2021 Time: 06:56 Bed 5 Private MD: ED Physician Sergey Barrett HPI: 08/31 07:25 This 51 yrs old Female presents to ER via Ambulatory with complaints of Fever. hong 07:25 The patient reports fever, that was measured at 100 degrees Fahrenheit. Onset: The hong symptoms/episode began/occurred 2 day(s) ago. Modifying factors: there are no obvious modifying factors. Associated signs and symptoms: Pertinent positives: cough, runny nose, sinus congestion, sore throat. Severity of symptoms: At their worst the symptoms were mild in the emergency department the symptoms are unchanged. The patient has not experienced similar symptoms in the past. 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 - Social history:: Smoking status: Reported history of juuling and/or vaping. - Family history:: not pertinent. ROS: 07:25 Constitutional: Negative for fever, chills, and weight loss, Eyes: Negative for injury, hong pain, redness, and discharge, Neck: Negative for injury, pain, and swelling, Cardiovascular: Negative for chest pain, palpitations, and edema, Abdomen/GI: Negative for abdominal pain, nausea, vomiting, diarrhea, and constipation, Back: Negative for injury and pain, : Negative for injury, bleeding, discharge, and swelling, MS/Extremity: Negative for injury and deformity, Skin: Negative for injury, rash, and discoloration, Neuro: Negative for headache, weakness, numbness, tingling, and seizure, Psych: Negative for depression, anxiety, suicide ideation, homicidal ideation, and hallucinations, Allergy/Immunology: Negative for hives, rash, and allergies, Endocrine: Negative for neck swelling, polydipsia, polyuria, polyphagia, and marked weight changes, Hematologic/Lymphatic: Negative for swollen nodes, abnormal bleeding, and unusual bruising. 07:25 ENT: Positive for sinus congestion, sore throat. Exam: 07:25 Constitutional: This is a well developed, well nourished patient who is awake, alert, hong and in no acute distress. Head/Face: Normocephalic, atraumatic. Eyes: Pupils equal round and reactive to light, extra-ocular motions intact. Lids and lashes normal. Conjunctiva and sclera are non-icteric and not injected. Cornea within normal limits. Periorbital areas with no swelling, redness, or edema. ENT: Nares patent. No nasal discharge, no septal abnormalities noted. Tympanic membranes are normal and external auditory canals are clear. Oropharynx with no redness, swelling, or masses, exudates, or evidence of obstruction, uvula midline. Mucous membranes moist. Neck: Trachea midline, no thyromegaly or masses palpated, and no cervical lymphadenopathy. Supple, full range of motion without nuchal rigidity, or vertebral point tenderness. No Meningismus. Chest/axilla: Normal chest wall appearance and motion. Nontender with no deformity. No lesions are appreciated. Cardiovascular: Regular rate and rhythm with a normal S1 and S2. No gallops, murmurs, or rubs. Normal PMI, no JVD. No pulse deficits. Respiratory: Lungs have equal breath sounds bilaterally, clear to auscultation and percussion. No rales, rhonchi or wheezes noted. No increased work of breathing, no retractions or nasal flaring. Abdomen/GI: Soft, non-tender, with normal bowel sounds. No distension or tympany. No guarding or rebound. No evidence of tenderness throughout. Back: No spinal tenderness. No costovertebral tenderness. Full range of motion. Skin: Warm, dry with normal turgor. Normal color with no rashes, no lesions, and no evidence of cellulitis. MS/ Extremity: Pulses equal, no cyanosis. Neurovascular intact. Full, normal range of motion. Neuro: Awake and alert, GCS 15, oriented to person, place, time, and situation. Cranial nerves II-XII grossly intact. Motor strength 5/5 in all extremities. Sensory grossly intact. Cerebellar exam normal. Normal gait. Psych: Awake, alert, with orientation to person, place and time. Behavior, mood, and affect are within normal limits. Vital Signs: 07:07 BP 151 / 68; Pulse 98; Resp 15; Temp 98.4(O); Pulse Ox 97% on R/A; Weight 85.28 kg (R); ll3 Height 4 ft. 11 in. (149.86 cm) (R); Pain 5/10; 08:23 BP 113 / 74; Pulse 90; Resp 16; Pulse Ox 97% on R/A; ll3 09:29 BP 148 / 66; Pulse 90; Resp 15; Pulse Ox 98% on R/A; ll3 10:30 BP 123 / 60; Pulse 85; Resp 15; Pulse Ox 97% on R/A; ll3 11:30 BP 116 / 59; Pulse 69; Resp 17; Pulse Ox 96% on R/A; ll3 07:07 Body Mass Index 37.97 (85.28 kg, 149.86 cm) ll3 MDM: 07:13 Patient medically screened. hong 07:28 Differential diagnosis: viral Infection, bacterial infection, URI, bronchitis, hong pneumonia UTI. Data reviewed: vital signs, nurses notes, lab test result(s), urinalysis. Data interpreted: athletic monitor: rate is 98 beats/min, rhythm is regular, Pulse oximetry: on room air is 97 %. Counseling: I had a detailed discussion with the patient and/or guardian regarding: the historical points, exam findings, and any diagnostic results supporting the discharge/admit diagnosis, lab results, radiology results, the need for outpatient follow up, for definitive care, an justice court judge. 08/31 07:14 Order name: COVID-19/FLU A+B/RSV (Document "Date of Onset" if Symptomatic); Complete hong Time: 08:41 08/31 07:15 Order name: Strep; Complete Time: 08:41 ll1 08/31 07:34 Order name: Urine Dipstick-Ancillary; Complete Time: 08:03 EDMS 08/31 08:27 Order name: Throat Culture EDOK 08/31 08:59 Order name: CBC with Diff; Complete Time: 09:35 hong 08/31 08:59 Order name: Comprehensive Metabolic Panel; Complete Time: 09:35 [facility] 08/31 09:02 Order name: Ferritin; Complete Time: 10:09 [facility] 08/31 09:02 Order name: CRP; Complete Time: 10:09 [facility] 08/31 07:14 Order name: Urine Dipstick-Ancillary (obtain specimen); Complete Time: 07:34 [facility] 08/31 07:15 Order name: Droplet/Contact Precautions; Complete Time: 07:15 [facility] 08/31 07:15 Order name: Labs collected and sent; Complete Time: 07:15 [facility] 08/31 07:15 Order name: O2 Per Protocol; Complete Time: 07:15 [facility] Administered Medications: 07:38 Drug: Motrin (ibuprofen) 800 mg Route: PO; ll3 08:15 Follow up: Response: No adverse reaction; Marked relief of symptoms ll3 09:20 Drug: NS 0.9% 500 ml Route: IV; Rate: bolus; Site: right antecubital; ll3 10:56 Follow up: IV Status: Completed infusion ll1 09:20 Drug: NS 0.9% 1000 ml Route: IV; Rate: 125 ml/hr; Site: right antecubital; ll3 12:10 Follow up: Response: No adverse reaction; IV Status: Completed infusion ll3 09:20 Drug: Pepcid (famotidine) 40 mg Route: PO; ll3 09:56 Follow up: Response: No adverse reaction ll3 09:20 Drug: Zithromax (azithromycin) 500 mg Route: PO; ll3 09:56 Follow up: Response: No adverse reaction ll3 09:20 Drug: Aspirin Chewable Tablet 162 mg Route: PO; ll3 09:56 Follow up: Response: No adverse reaction ll3 09:50 Drug: Tylenol 1000 mg Route: PO; ll3 11:53 Follow up: Response: No adverse reaction ll3 09:50 Drug: Lopressor (metoprolol TARTRATE) 50 mg Route: PO; ll3 11:53 Follow up: Response: No adverse reaction ll3 09:51 Drug: Casirivimab-Imdevimab Dose Pack 120 mg/mL-120 mg/mL (EUA) 1 vials Route: IV; ll3 Rate: per protocol; Site: right antecubital; 10:56 Follow up: Response: No adverse reaction; IV Status: Completed infusion; IV Intake: ll1 120ml Disposition Summary: 08/31/21 10:09 Discharge Ordered Location: Home [facility] Problem: new [facility] Symptoms: have improved [facility] Condition: Stable [facility] Diagnosis - UTI/ Urinary tract infection, site not specified hong - Fever, unspecified hong - Acute upper respiratory infection, unspecified hong - Coronavirus infection, unspecified hong - Pneumonia due to SARS-associated coronavirus [facility] Followup: hong - With: Private Physician - When: 2 - 3 days - Reason: Recheck today's complaints, Continuance of care, Re-evaluation by your physician Followup: hong - With: - When: 2 - 3 days - Reason: Recheck today's complaints, Continuance of care, Re-evaluation by your physician Discharge Instructions: - Discharge Summary Sheet hong - Fever, Adult hong - Upper Respiratory Infection, Adult hong - Cool Mist Vaporizer hong - Urinary Tract Infection, Adult, [id number] hong - Viral Respiratory Infection, [id number] hong - Cough, Adult hong - Aspirin and Your Heart [facility] - COVID-19 [facility] - COVID-19 Frequently Asked Questions [facility] - Things You Can Do to Manage Your COVID-19 Symptoms at Home - [facility] - COVID-19: Quarantine vs. Isolation - [facility] Forms: - Medication Reconciliation Form [facility] - Thank You Letter [facility] - Antibiotic Education [facility] - Prescription Opioid Use [facility] Prescriptions: - ivermectin 3 mg Oral tablet - take 5 tablet by ORAL route once daily 15 mg po daily on days 1, 3 and 5; 15 hong tablet; Refills: 0, Product Selection Permitted - albuterol sulfate 90 mcg/actuation Inhalation HFA aerosol inhaler - inhale 2 puff by INHALATION route every 6 hours; 1 Pump; Refills: 0, Product [facility] Selection Permitted - Cipro 250 mg Oral Tablet - take 1 tablet by ORAL route every 12 hours for 7 days; 14 tablet; Refills: 0, [facility] Product Selection Permitted - Pepcid 20 mg Oral Tablet - take 1 tablet by ORAL route every 12 hours for 30 days; 60 tablet; Refills: 0, [facility] Product Selection Permitted - Singulair 10 mg Oral Tablet - take 1 tablet by ORAL route At bedtime; 30 tablet; Refills: 0, Product [facility] Selection Permitted - Zithromax 500 mg Oral Tablet - take 1 tablet by ORAL route once daily for 4 days; 4 tablet; Refills: 0, [facility] Product Selection Permitted Signatures: Dispatcher [employer] EDSergey Estevez MD MD cha Lewis, Lynsay RN RN ll1 Anmol Danielson RN RN ll3 Corrections: (The following items were deleted from the chart) 07:36 07:15 Influenza Screen (A \\T\\ B)+[id number] ordered. EDMS EDMS 07:37 07:15 Influenza Screen (A ordered. EDMS EDMS
--- NOTE | 2021-08-31 10:10 | ER ---
Nurse's Notes [facility] Name: Haylee Gamboa Age: 51 yrs Sex: Female : 1970 Arrival Date: 08/31/2021 Time: 06:56 Bed 5 Private MD: Diagnosis: UTI/ Urinary tract infection, site not specified;Fever, unspecified;Acute upper respiratory infection, unspecified;Coronavirus infection, unspecified;Pneumonia due to SARS-associated coronavirus Presentation: 08/31 07:06 Onset of symptoms was August 30, 2021. ll1 07:06 Acuity: LOWELL 3 ll1 07:07 Chief complaint: Patient states: At 11 PM last night I started felling chills, body ll3 aches, and started to have a headache, pt C/O wet cough and feeling unsteady on her feet. Coronavirus screen: chills, cough unrelated to allergies, fever, headache, shaking with chills. Ebola Screen: No symptoms or risks identified at this time. Initial Sepsis Screen: Does the patient meet any 2 criteria? No. Patient's initial sepsis screen is negative. Does the patient have a suspected source of infection? No. Patient's initial sepsis screen is negative. Risk Assessment: Do you want to hurt yourself or someone else? Patient reports no desire to harm self or others. 07:07 Method Of Arrival: Ambulatory ll3 Triage Assessment: 07:07 General: Appears in no apparent distress. uncomfortable, Behavior is calm, cooperative. ll3 Pain: Complains of pain in H/A, Body aches. Neuro: Level of Consciousness is awake, alert, obeys commands, Oriented to person, place, time, situation, Gait is Pt states she feels unsteady on her feet. Reports headache weakness. Cardiovascular: Patient's skin is warm and dry. Respiratory: Airway is patent Trachea midline Respiratory effort is even, unlabored, Respiratory pattern is regular, symmetrical, Breath sounds are clear bilaterally. Parent/caregiver reports the patient having cough that is productive. Derm: Skin is pink, warm \T\ dry. Musculoskeletal:. 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 - Social history:: Smoking status: Reported history of juuling and/or vaping. - Family history:: not pertinent. Screenin:19 Abuse screen: Denies threats or abuse. Nutritional screening: No deficits noted. ll3 Tuberculosis screening: No symptoms or risk factors identified. 09:30 Fall Risk IV access (20 points). Mental Status- Oriented to own ability (0 pts). Total ll3 Alfonso Fall Scale indicates No Risk (0-24 pts). Assessment: 07:19 General: See triage assessment. ll3 08:24 Reassessment: Patient appears in no apparent distress at this time. Patient and/or ll3 family updated on plan of care and expected duration. Pain level reassessed. Patient is alert, oriented x 3, equal unlabored respirations, skin warm/dry/pink. Patient states feeling better. 09:29 Reassessment: Patient appears in no apparent distress at this time. No changes from ll3 previously documented assessment. Patient and/or family updated on plan of care and expected duration. Pain level reassessed. Patient is alert, oriented x 3, equal unlabored respirations, skin warm/dry/pink. 10:30 Reassessment: Patient appears in no apparent distress at this time. No changes from ll3 previously documented assessment. Patient and/or family updated on plan of care and expected duration. Pain level reassessed. Patient is alert, oriented x 3, equal unlabored respirations, skin warm/dry/pink. 11:30 Reassessment: Patient appears in no apparent distress at this time. No changes from ll3 previously documented assessment. Patient and/or family updated on plan of care and expected duration. Pain level reassessed. Patient is alert, oriented x 3, equal unlabored respirations, skin warm/dry/pink. Vital Signs: 07:07 BP 151 / 68; Pulse 98; Resp 15; Temp 98.4(O); Pulse Ox 97% on R/A; Weight 85.28 kg (R); ll3 Height 4 ft. 11 in. (149.86 cm) (R); Pain 5/10; 08:23 BP 113 / 74; Pulse 90; Resp 16; Pulse Ox 97% on R/A; ll3 09:29 BP 148 / 66; Pulse 90; Resp 15; Pulse Ox 98% on R/A; ll3 10:30 BP 123 / 60; Pulse 85; Resp 15; Pulse Ox 97% on R/A; ll3 11:30 BP 116 / 59; Pulse 69; Resp 17; Pulse Ox 96% on R/A; ll3 07:07 Body Mass Index 37.97 (85.28 kg, 149.86 cm) ll3 ED Course: 06:56 Patient arrived in ED. bp1 07:05 Arm band placed on Patient placed in an exam room, on a stretcher. ll1 07:06 Triage completed. ll1 07:07 Anmol Danielson RN is Primary Nurse. ll3 07:13 Sergey Barrett MD is Attending Physician. hong 07:19 Patient has correct armband on for positive identification. Bed in low position. Call ll3 light in reach. Side rails up X 1. 08:00 Urine collected: clean catch specimen, clear, COVID swab sent to lab. Flu and/or RSV ll3 swab sent to lab. Strep swab sent to lab. 09:05 Inserted saline lock: 22 gauge in right antecubital area, using aseptic technique. ll1 Blood collected. 10:09 Augustin French MD is Referral Physician. hong 12:09 No provider procedures requiring assistance completed. IV discontinued, intact, ll3 bleeding controlled, No redness/swelling at site. Pressure dressing applied. Administered Medications: 07:38 Drug: Motrin (ibuprofen) 800 mg Route: PO; ll3 08:15 Follow up: Response: No adverse reaction; Marked relief of symptoms ll3 09:20 Drug: NS 0.9% 500 ml Route: IV; Rate: bolus; Site: right antecubital; ll3 10:56 Follow up: IV Status: Completed infusion ll1 09:20 Drug: NS 0.9% 1000 ml Route: IV; Rate: 125 ml/hr; Site: right antecubital; ll3 12:10 Follow up: Response: No adverse reaction; IV Status: Completed infusion ll3 09:20 Drug: Pepcid (famotidine) 40 mg Route: PO; ll3 09:56 Follow up: Response: No adverse reaction ll3 09:20 Drug: Zithromax (azithromycin) 500 mg Route: PO; ll3 09:56 Follow up: Response: No adverse reaction ll3 09:20 Drug: Aspirin Chewable Tablet 162 mg Route: PO; ll3 09:56 Follow up: Response: No adverse reaction ll3 09:50 Drug: Tylenol 1000 mg Route: PO; ll3 11:53 Follow up: Response: No adverse reaction ll3 09:50 Drug: Lopressor (metoprolol TARTRATE) 50 mg Route: PO; ll3 11:53 Follow up: Response: No adverse reaction ll3 09:51 Drug: Casirivimab-Imdevimab Dose Pack 120 mg/mL-120 mg/mL (EUA) 1 vials Route: IV; ll3 Rate: per protocol; Site: right antecubital; 10:56 Follow up: Response: No adverse reaction; IV Status: Completed infusion; IV Intake: ll1 120ml Intake: 10:56 IV: 120ml; Total: 120ml. ll1 Outcome: 10:09 Discharge ordered by . hong 12:09 Discharged to home ambulatory, with family. ll3 12:09 Condition: stable 12:09 Discharge instructions given to patient, Instructed on discharge instructions, follow up and referral plans. medication usage, Demonstrated understanding of instructions, follow-up care, medications, Prescriptions given X 6 12:11 Patient left the ED. ll3 Signatures: Sergey Barrett MD MD cha Lewis, Lynsay RN RN ll1 Abbey Blank Lynsea, RN RN ll3
[2021-08-31 12:16] VITALS: TEMP 98.4
[2021-08-31 12:21] VITALS: BP 116/59; O2SAT 96
== END 2021-08-31 12:11 | disposition home or self-care (01) ==
LOC: ER 06:52
DX: U07.1 COVID-19 (principal); J12.82 Pneumonia due to coronavirus disease 2019; N39.0 Urinary tract infection, site not specified; I10 Essential (primary) hypertension; Z88.0 Allergy status to penicillin; Z88.1 Allergy status to other antibiotic agents; Z88.2 Allergy status to sulfonamides
CPT/HCPCS: 96365; 96361; 87070; 85025; 36415; 87081; 81003; 82728; 80053; 0241U; 86140; 99284; J7050; J7040; J7030; M0243

== ENCOUNTER 2022-02-21 03:50 | Emergency (ER) | payer BC, OTHER ==
--- OUTSIDE RECORDS SUMMARY | 2022-02-21 03:53 | XMS REPORT | Continuity of Care Document ---
:1970 Author Organization [facility] t Address [address] [place] [address] Care Team Providers Name Role Phone Marc Sims Attending Clinician Unavailable Marc Sims Admitting Clinician Unavailable Problems This patient has no known problems. Allergies, Adverse Reactions, Alerts This patient has no known allergies or adverse reactions. Medications This patient has no known medications. Procedures This patient has no known procedures. Encounters Start End Encounter Admission Attending Care Care Encounter Source Date/Time Date/Time Type Type Clinicians Facility Department ID 2021-10-06 Outpatient Sims, STLMLC STLMLC [id number] Common 13:30:46 Shashi [id number] [facility] 2021-10-06 Outpatient STLMLC STLMLC [id number] Common 13:25:05 [id number] [facility] 2021-04-06 2021-04-06 Outpatient STLMLC STLMLC [id number] Common 00:00:00 00:00:00 [facility] 2021-03-30 2021-03-30 Outpatient STLMLC STLMLC [id number] Common 00:00:00 00:00:00 [facility] 2021-03-23 2021-03-23 Outpatient STLMLC STLMLC [id number] Common 00:00:00 00:00:00 [facility] Results This patient has no known results.
--- NOTE | 2022-02-21 05:20 | ER ---
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 Coronavirus screen: cough unrelated to allergies. Ebola Screen: No symptoms or risks identified at this time. 04:11 Method Of Arrival: Ambulatory bb 04:11 Acuity: LOWELL 4 bb ED Course: 03:51 Patient arrived in ED. bp1 04:13 Triage completed. bb Administered Medications: No medications were administered Outcome: 04:14 Eloped from patient exam room, before seeing physician bb 05:19 Patient left the ED. bb Signatures: Mariana Dejesus RN RN bb Abbey Blank bp1
== END 2022-02-21 05:19 | disposition left against medical advice (07) ==
LOC: ER 03:50
DX: U07.1 COVID-19 (principal); Z53.21 Procedure and treatment not carried out due to patient leaving prior to being seen by health care provider
CPT/HCPCS: 99281; U0003

== ENCOUNTER 2022-03-12 12:23 | Emergency (ER) | payer BC ==
[2022-03-12 13:55] LABS: Absolute Lymphocytes (CBC) 2.1 K/uL (0.7-4.9); Hematocrit 41.1 % (36.0-45.0); Lymphocytes % 31.5 % (15.3-44.8); MCV 87.8 fL (80-100); RBC Red Blood Cell Count 4.68 M/uL (3.86-4.86)
--- NOTE | 2022-03-12 14:25 | RAD REPORT ---
EXAM DESCRIPTION: US - Extremity Venous Uni Ltd - 03/12/2022 2:12 pm CLINICAL HISTORY: Swelling COMPARISON: None. TECHNIQUE: Real-time sonographic evaluation of the left lower extremity deep venous system was perfo rmed. FINDINGS: Normal compressibility, flow augmentation, phasic flow and spontaneous flow is identified in the left lower extremity deep venous system. No intraluminal filling defects seen. IMPRESSION: No DVT in the left lower extremity.
[2022-03-12 14:43] LABS: Potassium 3.8 mmol/L (3.5-5.1)
--- NOTE | 2022-03-12 15:14 | ER ---
Nurse's Notes [facility] Name: Haylee Gamboa Age: 51 yrs Sex: Female : 1970 Arrival Date: 03/12/2022 Time: 12:25 Bed 13 Private MD: Diagnosis: Cellulitis of the Lower Extremity Presentation: 03/12 13:00 Chief complaint: Patient states: for about two days swelling and redness to Left leg, vg1 stated 'feels tight'. Coronavirus screen: Vaccine status: Patient reports receiving the 2nd dose of the covid vaccine. Client denies travel out of the [place] in the last 14 days. Ebola Screen: Patient denies exposure to infectious person. Patient denies travel to an Ebola-affected area in the 21 days before illness onset. Initial Sepsis Screen: Does the patient meet any 2 criteria? No. Patient's initial sepsis screen is negative. Does the patient have a suspected source of infection? No. Patient's initial sepsis screen is negative. Risk Assessment: Do you want to hurt yourself or someone else? Patient reports no desire to harm self or others. Onset of symptoms was March 10, 2022. 13:00 Method Of Arrival: Ambulatory vg1 13:00 Acuity: LOWELL 3 vg1 Triage Assessment: 13:02 General: Appears comfortable, Behavior is calm, cooperative. Pain: Complains of pain in vg1 left manzanares. 13:02 Cardiovascular: Pulses are palpable in left dorsalis pedis artery. Derm: Skin is vg1 intact, Skin is red. 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 - Social history:: Smoking status: Patient denies any tobacco usage or history of. Screenin:00 Abuse screen: Denies threats or abuse. Denies injuries from another. Nutritional jg9 screening: No deficits noted. Tuberculosis screening: No symptoms or risk factors identified. Fall Risk None identified. Assessment: 15:00 Reassessment: No changes from previously documented assessment. Patient and/or family jg9 updated on plan of care and expected duration. Pain level reassessed. Patient is alert, oriented x 3, equal unlabored respirations, skin warm/dry/pink. 15:38 Derm: Skin reddness/swelling noted to left leg Decubitus. jg9 Vital Signs: 13:00 BP 153 / 78; Pulse 79; Resp 16; Temp 97.7; Pulse Ox 100% on R/A; Weight 88.45 kg; vg1 Height 4 ft. 11 in. (149.86 cm); Pain 3/10; 15:00 BP 120 / 78; Pulse 80; Resp 12 S; Pulse Ox 97% on R/A; jg9 13:00 Body Mass Index 39.38 (88.45 kg, 149.86 cm) vg1 ED Course: 12:25 Patient arrived in ED. rg4 12:34 Ronel Tran, RN is Primary Nurse. chery 12:35 Triage completed. vg1 13:02 Arm band placed on. vg1 13:17 Montana Moscoso PA is PHCP. [facility] 13:17 Primitivo Cifuentes MD is Attending Physician. jm 13:48 Initial lab(s) drawn, by wi, sent to lab. Inserted saline lock: 20 gauge in right vg1 antecubital area, using aseptic technique. Blood collected. 14:13 US Extremity Venous Unilateral Ltd In Process Unspecified. EDMS 15:00 Patient has correct armband on for positive identification. Bed in low position. Call jg9 light in reach. 15:39 No provider procedures requiring assistance completed. jg9 15:39 IV discontinued. jg9 Administered Medications: 15:28 Drug: Doxycycline 100 mg Route: PO; jg9 15:40 Follow up: Response: No adverse reaction; Medication administered at discharge. jg9 Medication: 15:00 VIS not applicable for this client. jg9 Outcome: 15:14 Discharge ordered by . [facility] 15:39 Discharged to home ambulatory. jg9 15:39 Condition: stable 15:39 Discharge instructions given to patient, Instructed on discharge instructions, follow up and referral plans. Demonstrated understanding of instructions, follow-up care, Prescriptions given X 1. 15:40 Patient left the ED. jg9 Signatures: Dispatcher [employer] EDMS Montana Moscoso PA PA jmm Garcia, Rubi rg4 Aneta Peter RN RN vg1 Lore Gruber RN RN jg9 Aniya-StageRonel lea RN RN chery Corrections: (The following items were deleted from the chart) 12:39 12:35 Allergies: Bactrim; vg1 vg1 12:39 12:35 Allergies: PENICILLINS; vg1 vg1 12:39 12:35 Allergies: Sulfa (Sulfonamide Antibiotics); vg1 vg1 12:39 12:35 Home Meds: atorvastatin oral; vg1 vg1 12:39 12:35 Home Meds: anastrozole oral; vg1 vg1 12:39 12:35 Home Meds: Furosemide Oral; vg1 vg1 12:39 12:35 Home Meds: levothyroxine oral; vg1 vg1 12:39 12:35 Home Meds: metoprolol tartrate 50 mg Oral tab once daily; vg1 vg1 12:39 12:35 Home Meds: gabapentin oral; vg1 vg1 12:39 12:35 Home Meds: Eliquis oral; vg1 vg1 12:39 12:35 PMHx: Hypertensive disorder; vg1 vg1 12:39 12:35 PMHx: Atrial fibrillation; vg1 vg1 12:39 12:35 PMHx: Chronic obstructive lung disease; vg1 vg1 12: 12:35 PSHx: Cholecystectomy; vg1 vg1 12:39 12:35 Immunization history: Client reports receiving the 2nd dose of the Covid vaccine, vg1 vg1 12:39 12:35 Social history: Smoking status: Patient/guardian denies using tobacco, the vg1 patient reports quitting approximately 30 years ago, vg1 12:39 12:38 PMHx: Congestive heart failure; vg1 vg1 12:39 12:35 General: Appears uncomfortable, Behavior is cooperative, vg1 vg1 12:39 12:35 Pain: Complains of pain in right arm and left leg vg1 vg1 12:39 12:38 Neuro: Level of Consciousness is awake, alert, obeys commands, Oriented to vg1 person, place, time, situation, vg1 :39 12:38 Cardiovascular: Patient's skin is warm and dry. 1 1 12:33 Chief complaint: Patient's son or daughter states: has fallen three times this vg1 week and pt is on blood thinners; "she has a wound to hear Right arm and Left leg" Pt states did hit head but denies LOC. 1 : 12:33 Coronavirus screen: Vaccine status: Patient reports receiving the 2nd dose of the vg1 covid vaccine. Client denies travel out of the [place] in the last 14 days. vg1 : 12:33 Ebola Screen: Patient denies exposure to infectious person. Patient denies travel vg1 to an Ebola-affected area in the 21 days before illness onset. [facility] : 12:33 Risk Assessment: Do you want to hurt yourself or someone else? Patient reports no vg1 desire to harm self or others. [facility] : 12:33 Initial Sepsis Screen: Does the patient meet any 2 criteria? No. Patient's [facility] initial sepsis screen is negative. Does the patient have a suspected source of infection? No. Patient's initial sepsis screen is negative. [facility] 12:33 Onset of symptoms was March 08, 2022 [place] [id number] 12:33 Method Of Arrival: Wheelchair 1 1 :40 12:33 BP 158 / 53; Pulse 71bpm; Resp 18bpm; Pulse Ox 93% RA; Temp 98.4F; 58.97 kg; vg1 Height 5 ft. 6 in.; BMI: 20.9; Pain 10/10; vg1 :40 12:33 Acuity: LOWELL 3 vg1 vg1 13:04 13:02 Home Meds: Metformin Oral; vg1 vg1 13:04 13:02 PMHx: Diabetes mellitus; vg1 vg1
--- NOTE | 2022-03-12 15:15 | EDPHYS ---
Physician Documentation [facility] Name: Haylee Gamboa Age: 51 yrs Sex: Female : 1970 Arrival Date: 03/12/2022 Time: 12:25 Bed 13 Private MD: ED Physician Primitivo Cifuentes HPI: 03/12 13:18 This 51 yrs old Female presents to ER via Ambulatory with complaints of Leg jmm Swelling. 13:18 The patient presents with pain, that is acute. Onset: The symptoms/episode jmm began/occurred gradually, 3 day(s) ago. Modifying factors: The symptoms are alleviated by nothing. the symptoms are aggravated by nothing. This is a 51 year old female with a history of htn that presents to the ED with complaints of left leg swelling beginning approx 3 days ago. Patient states she recovered from COVID 2 weeks ago. States she has had some prolonged sitting. Denies chest pain or shortness of breath. . 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 - Social history:: Smoking status: Patient denies any tobacco usage or history of. ROS: 13:18 Constitutional: Negative for fever, chills, and weight loss, Cardiovascular: Negative jmm for chest pain, palpitations, and edema, Respiratory: Negative for shortness of breath, cough, wheezing, and pleuritic chest pain. 13:18 MS/extremity: Positive for pain, swelling. 13:18 All other systems are negative. Exam: 13:18 Constitutional: This is a well developed, well nourished patient who is awake, alert, jmm and in no acute distress. Head/Face: atraumatic. Eyes: EOMI, no conjunctival erythema appreciated ENT: Moist Mucus Membranes Neck: Trachea midline, Supple Chest/axilla: Normal chest wall appearance and motion. Cardiovascular: Regular rate and rhythm. No edema appreciated Respiratory: Normal respirations, no respiratory distress appreciated Abdomen/GI: Non distended Back: Normal ROM 13:18 Skin: erythema noted to the left anterior lower leg, mildly ttp, purpura noted. 13:18 Skin: purpura noted to the left lower leg. 13:18 Neuro: Orientation: is normal, Mentation: is normal, Memory: is normal. 13:18 Psych: Behavior/mood is pleasant, cooperative. Vital Signs: 13:00 BP 153 / 78; Pulse 79; Resp 16; Temp 97.7; Pulse Ox 100% on R/A; Weight 88.45 kg; vg1 Height 4 ft. 11 in. (149.86 cm); Pain 3/10; 15:00 BP 120 / 78; Pulse 80; Resp 12 S; Pulse Ox 97% on R/A; jg9 13:00 Body Mass Index 39.38 (88.45 kg, 149.86 cm) vg1 MDM: 13:21 Patient medically screened. [facility] 15:11 Data reviewed: vital signs, nurses notes. Counseling: I had a detailed discussion with gautam the patient and/or guardian regarding: the historical points, exam findings, and any diagnostic results supporting the discharge/admit diagnosis, lab results, radiology results, the need for outpatient follow up, to return to the emergency department if symptoms worsen or persist or if there are any questions or concerns that arise at home. ED course: Patient is alert and non toxic in appearance in the ED. Advised to follow up with pcp and otherwise given strict return precautions. patient understood and agrees with the plan of care. . 03/12 13:18 Order name: CBC with Diff; Complete Time: 14:01 [facility] 03/12 13:18 Order name: BMP; Complete Time: 14:45 [facility] 03/12 13:18 Order name: US Extremity Venous Unilateral Ltd; Complete Time: 14:34 [facility] Administered Medications: 15:28 Drug: Doxycycline 100 mg Route: PO; jg9 15:40 Follow up: Response: No adverse reaction; Medication administered at discharge. jg9 Disposition: 16:24 Co-signature as Attending Physician, Primitivo Cifuentes MD I agree with the assessment and kdr plan of care. Disposition Summary: 03/12/22 15:14 Discharge Ordered Location: Home [facility] Condition: Stable [facility] Diagnosis - Cellulitis of the Lower Extremity [facility] Followup: m - With: Private Physician - When: 2 - 3 days - Reason: Recheck today's complaints, Continuance of care, Re-evaluation by your physician Discharge Instructions: - Discharge Summary Sheet jmm - Cellulitis, Adult jm Forms: - Medication Reconciliation Form [facility] - Thank You Letter [facility] - Antibiotic Education [facility] - Prescription Opioid Use [facility] - Work release form jg9 Prescriptions: - Doxycycline Hyclate 100 mg Oral Tablet - take 1 tablet by ORAL route every 12 hours; 20 tablet; Refills: 0, Product jm Selection Permitted Signatures: Dispatcher [employer] EDPrimitivo Posadas MD MD kdr Mickail, Joel, PA PA jmm Garcia, Victoria RN RN vg1 Lore Gruber RN RN jg9 Corrections: (The following items were deleted from the chart) 12:39 12:35 Allergies: Bactrim; vg1 vg1 12:39 12:35 Allergies: PENICILLINS; vg1 vg1 12:39 12:35 Allergies: Sulfa (Sulfonamide Antibiotics); vg1 vg1 12:39 12:35 Home Meds: atorvastatin oral; vg1 vg1 12:39 12:35 Home Meds: anastrozole oral; vg1 vg1 12:39 12:35 Home Meds: Furosemide Oral; vg1 vg1 12:39 12:35 Home Meds: levothyroxine oral; vg1 vg1 12:39 12:35 Home Meds: metoprolol tartrate 50 mg Oral tab once daily; vg1 vg1 12:39 12:35 Home Meds: gabapentin oral; vg1 vg1 12:39 12:35 Home Meds: Eliquis oral; vg1 vg1 12:39 12:35 PMHx: Hypertensive disorder; vg1 vg1 12:39 12:35 PMHx: Atrial fibrillation; vg1 vg1 12:39 12:35 PMHx: Chronic obstructive lung disease; vg1 vg1 12:39 12:35 PSHx: Cholecystectomy; vg1 vg1 12:39 12:35 Immunization history: Client reports receiving the 2nd dose of the Covid vaccine, vg1 vg1 12:39 12:35 Social history: Smoking status: Patient/guardian denies using tobacco, the vg1 patient reports quitting approximately 30 years ago, vg1 12:39 12:38 PMHx: Congestive heart failure; vg1 vg1 13:02 Home Meds: Metformin Oral; vg1 vg1 13:02 PMHx: Diabetes mellitus; vg1 vg1
[2022-03-12] MEDS ORDERED: DOXYCYCLINE 100 MG CAP PO ONE (15:32)
[2022-03-12 15:58] VITALS: TEMP 97.7
[2022-03-12 16:02] VITALS: BP 120/78; O2SAT 97
== END 2022-03-12 15:40 | disposition home or self-care (01) ==
LOC: ER 12:23
DX: L03.116 Cellulitis of left lower limb (principal); I10 Essential (primary) hypertension; Z79.82 Long term (current) use of aspirin; Z88.0 Allergy status to penicillin; Z88.1 Allergy status to other antibiotic agents; Z88.2 Allergy status to sulfonamides; Z86.16 Personal history of COVID-19
CPT/HCPCS: 36415; 80048; 85025; 93971; 99284

== ENCOUNTER 2023-08-04 07:41 | Emergency (ER) | payer OTHER, BC ==
--- OUTSIDE RECORDS SUMMARY | 2023-08-04 07:44 | XMS REPORT | Continuity of Care Document ---
:1970 Author Organization [facility] t Address [address] [facility] [address] [place] [address] Care Team Providers Name Role Phone Shashi Sims Attending Clinician Unavailable Shashi Sims Admitting Clinician Unavailable Payers Payer Name Policy Type Policy Number Effective Date Expiration Date S laura AETNA C1 [id number] [facility] AETNA C1 [id number] [facility] AENA C1 [id number] [facility] Problems This patient has no known problems. Allergies, Adverse Reactions, Alerts Allergy Allergy Status Severity Reaction(s) Onset Inactive Treating Comm ents Source Name Type Date Date Clinician penicill penicill Active Unknown Commo n in G in G [facility] Social History Social Habit Start Date Stop Date Quantity Comments Source History of Tobacco Use Co mmon [facility] Sex Assigned At Com mon [facility] Smoking Status Start Date Stop Date Source Never Smoker [facility] Medications Ordered Filled Start Stop Current Ordering Indication Dosage Frequency Signature Comments Components Source Medication Medication Date Date Medication? Clinician (SIG) Name Name Metoprolol Metoprolol No 1{table QD Metoprolol Succinate Succinate t} Succinate ER 50 MG ER 50 MG ER 50 MG Diclofenac Diclofenac No Diclofenac Sodium Sodium Sodium Lopressor Lopressor No 1{table Lopressor 50 MG 50 MG t_with_ 50 MG food} Coreg Coreg No Coreg Cyclobenzap Cyclobenzap No Cyclobenza rine HCl rine HCl rubio HCl amLODIPine amLODIPine No 1{table QD amLODIPine Besylate 5 Besylate 5 t} Besylate 5 MG MG MG Aspir-81 Aspir-81 No Aspir-81 Metoprolol Metoprolol No 1{table QD Metoprolol Succinate Succinate t} Succinate ER 50 MG ER 50 MG ER 50 MG Diclofenac Diclofenac No Diclofenac Sodium Sodium Sodium Lopressor Lopressor No 1{table Lopressor 50 MG 50 MG t_with_ 50 MG food} Coreg Coreg No Coreg Cyclobenzap Cyclobenzap No Cyclobenza rine HCl rine HCl rubio HCl amLODIPine amLODIPine No 1{table QD amLODIPine Besylate 5 Besylate 5 t} Besylate 5 MG MG MG Aspir-81 Aspir-81 No Aspir-81 Metoprolol Metoprolol No 1{table QD Metoprolol Succinate Succinate t} Succinate ER 50 MG ER 50 MG ER 50 MG Aspir-81 Aspir-81 No Aspir-81 Cyclobenzap Cyclobenzap No Cyclobenza rine HCl rine HCl rubio HCl Lopressor Lopressor No 1{table Lopressor 50 MG 50 MG t_with_ 50 MG food} Coreg Coreg No Coreg amLODIPine amLODIPine No 1{table QD amLODIPine Besylate 5 Besylate 5 t} Besylate 5 MG MG MG Diclofenac Diclofenac No Diclofenac Sodium Sodium Sodium Vital Signs Vital Name Observation Time Observation Value Comments Source height 2021-04-06 08:00:00 59 [in_i] [facility] weight 2021-04-06 08:00:00 202.6 [lb_av] Common [facility] bmi 2021-04-06 08:00:00 40.92 kg/m2 [facility] blood pressure 2021-04-06 08:00:00 134 mm[Hg] [facility] blood pressure 2021-04-06 08:00:00 76 mm[Hg] [facility] diastolic [facility] height 2021-03-23 08:30:00 59 [in_i] [facility] weight 2021-03-23 08:30:00 200.3 [lb_av] [facility] temperature 2021-03-23 08:30:00 98.0 [degF] [facility] - [facility] bmi 2021-03-23 08:30:00 40.45 kg/m2 [facility] blood pressure 2021-03-23 08:30:00 118 mm[Hg] [facility] blood pressure 2021-03-23 08:30:00 78 mm[Hg] Common [facility] - diastolic [facility] Procedures This patient has no known procedures. Encounters Start End Encounter Admission Attending Care Care Encounter Source Date/Time Date/Time Type Type Clinicians Facility Department ID 2021-10-06 Outpatient Sims, STLMLC STLMLC [id number] Common 13:30:46 Shashi [id number] [facility] 2021-10-06 Outpatient STLMLC STLMLC [id number] Common 13:25:05 [id number] [facility] 2021-04-06 2021-04-06 OFFICE STLMLC STLMLC [id number] Co mmon 00:00:00 00:00:00 VISIT EST Spir it PT LEVEL 3 - [facility] 2021-03-30 2021-03-30 (TEL) STLMLC STLMLC [id number] Co mmon 00:00:00 00:00:00 [facility] 2021-03-23 2021-03-23 CONSULT - STLMLC STLMLC [id number] Common 00:00:00 00:00:00 OFFICE, L3 Spi rit [facility] Results This patient has no known results.
[2023-08-04] MEDS ORDERED: IBUPROFEN 200 MG TAB PO ONE (08:15)
[2023-08-04] MEDS ORDERED: IBUPROFEN 400 MG TAB ONE (08:16)
--- NOTE | 2023-08-04 08:28 | EDPHYS ---
Physician Documentation [facility] Name: Haylee Gamboa Age: 53 yrs Sex: Female : 1970 Arrival Date: 08/04/2023 Time: 07:41 Bed 16 Private MD: Milton Sims C ED Physician Aaron Mohamud HPI: 08/04 07:51 This 53 yrs old Female presents to ER via Unassigned with complaints of Hand sp3 Injury. 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 Patient states her symptoms are similar to her past event. No direct trauma noted. No bleeding or proximal injury noted. Review of systems negative for distal hand pain, elbow pain, shoulder pain, headache, fever, chest pain, shortness of breath, abdominal pain, vomiting, diarrhea, or any other signs or symptoms at this time.. 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 - Social history:: Smoking status: Patient denies any tobacco usage or history of. ROS: 07:52 Constitutional: Negative for fever, chills, and weight loss, Eyes: Negative for injury, sp3 pain, redness, and discharge, ENT: Negative for injury, pain, and discharge, Neck: Negative for injury, pain, and swelling, Cardiovascular: Negative for chest pain, palpitations, and edema, Respiratory: Negative for shortness of breath, cough, wheezing, and pleuritic chest pain, Abdomen/GI: Negative for abdominal pain, nausea, vomiting, diarrhea, and constipation, Back: Negative for injury and pain, Skin: Negative for injury, rash, and discoloration, Neuro: Negative for headache, weakness, numbness, tingling, and seizure, Psych: Negative for depression, anxiety, suicide ideation, homicidal ideation, and hallucinations, Allergy/Immunology: Negative for hives, rash, and allergies, Endocrine: Negative for neck swelling, polydipsia, polyuria, polyphagia, and marked weight changes, Hematologic/Lymphatic: Negative for swollen nodes, abnormal bleeding, and unusual bruising, 07:52 All other systems are negative, Exam: 07:52 Constitutional: This is a well developed, well nourished patient who is awake, alert, sp3 and in no acute distress. Head/Face: Normocephalic, atraumatic. Neck: Trachea midline, no thyromegaly or masses palpated, and no cervical lymphadenopathy. Supple, full range of motion without nuchal rigidity, or vertebral point tenderness. No Meningismus. Chest/axilla: Normal chest wall appearance and motion. Nontender with no deformity. No lesions are appreciated. Cardiovascular: Regular rate and rhythm with a normal S1 and S2. No gallops, murmurs, or rubs. Normal PMI, no JVD. No pulse deficits. Respiratory: Lungs have equal breath sounds bilaterally, clear to auscultation and percussion. No rales, rhonchi or wheezes noted. No increased work of breathing, no retractions or nasal flaring. Abdomen/GI: Soft, non-tender, with normal bowel sounds. No distension or tympany. No guarding or rebound. No evidence of tenderness throughout. Back: No spinal tenderness. No costovertebral tenderness. Full range of motion. Skin: Warm, dry with normal turgor. Normal color with no rashes, no lesions, and no evidence of cellulitis. Neuro: Awake and alert, GCS 15, oriented to person, place, time, and situation. Cranial nerves II-XII grossly intact. Motor strength 5/5 in all extremities. Sensory grossly intact. Cerebellar exam normal. Normal gait. 07:52 Musculoskeletal/extremity: Left wrist tender on wrist joint and tendons. No significant hand pain noted. Range of motion is present however painful at the wrist. Pronation and supination is intact. Distal neurovascular exam including capillary refill is normal. Proximal exam of the elbow and shoulder are also normal.. Vital Signs: 07:52 BP 154 / 80; Pulse 80; Resp 16; Temp 98; Pulse Ox 96% on R/A; Weight 84.82 kg; Height 4 ll1 ft. 11 in. ; Pain 02/18; 09:03 BP 156 / 78; Pulse 80; Resp 16; Pulse Ox 98% ; db 07:52 Body Mass Index 37.77 (84.82 kg, 149.86 cm) ll1 07:52 Pain Scale: Adult ll1 MDM: 07:50 Patient medically screened. sp3 07:53 Data reviewed: vital signs, nurses notes, old medical records, radiologic studies. 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 I am not highly suspicious for fracture. X-rays pending. Will place patient in Velcro splint, NSAIDs as needed and light duty at work.. 08:26 ED course: X-ray demonstrates no significant abnormality. We will place in Velcro sp3 splint and discharge at this time.. 08/04 07:50 Order name: Wrist Left (2 View) XRAY; Complete Time: 08:35 sp3 08/04 08:28 Order name: Wrist Splint: Velcro prefab; Complete Time: 09:04 sp3 Administered Medications: 08:04 Drug: Ibuprofen PO 600 mg PO once Route: PO; db 09:04 Follow up: Response: No adverse reaction db Disposition Summary: 08/04/23 08:27 Discharge Ordered Notes: Location: Home sp3 Condition: Stable sp3 Diagnosis - Left wrist sprain sp3 Followup: sp3 - With: Geovany Castro MD - When: Upon discharge from the Emergency Department - Reason: Recheck today's complaints Discharge Instructions: - Discharge Summary Sheet sp3 - Wrist Sprain, Adult sp3 Forms: - Work release form ll1 - Medication Reconciliation Form sp3 - Thank You Letter sp3 - Antibiotic Education sp3 - Prescription Opioid Use sp3 - Patient Portal Instructions sp3 - Leadership Thank You Letter sp3 Signatures: Dispatcher [employer] EDNguyen Parks RN RN ll1 Aaron Mohamud MD MD sp3 Deisy Rivera RN RN db
--- NOTE | 2023-08-04 08:28 | ER ---
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 Coronavirus screen: Vaccine status: Patient reports receiving the 2nd dose of the covid vaccine. Client denies travel out of the [place] in the last 14 days. At this time, the client does not indicate any symptoms associated with coronavirus-19. Ebola Screen: Patient denies travel to an Ebola-affected area in the 21 days before illness onset. Initial Sepsis Screen: Does the patient meet any 2 criteria? No. Patient's initial sepsis screen is negative. Does the patient have a suspected source of infection? Yes: Bone or joint infection. Risk Assessment: Do you want to hurt yourself or someone else? Patient reports no desire to harm self or others. Onset of symptoms was August 04, 2023. 07:52 Method Of Arrival: Ambulatory ll1 07:52 Acuity: LOWELL 4 ll1 Triage Assessment: 07:53 General: Appears in no apparent distress. Behavior is calm, cooperative, appropriate ll1 for age. Pain: Complains of pain in left hand Pain currently is 6 out of 10 on a pain scale. Quality of pain is described as aching. Musculoskeletal: Circulation, motion, and sensation intact. Capillary refill < 3 seconds. 07:54 Injury Description: Bruise. 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 - Social history:: Smoking status: Patient denies any tobacco usage or history of. Screenin:03 [facility] ED Fall Risk Assessment (Adult) History of falling in the last 3 months, db including since admission No falls in past 3 months (0 pts) Score/Fall Risk Level 0 - 2 = Low Risk Oriented to surroundings, Maintained a safe environment. Abuse screen: Denies threats or abuse. Denies injuries from another. Nutritional screening: No deficits noted. Tuberculosis screening: No symptoms or risk factors identified. Assessment: 08:06 Reassessment: Patient appears in no apparent distress at this time. Patient and/or db family updated on plan of care and expected duration. Pain level reassessed. Patient is alert, oriented x 3, equal unlabored respirations, skin warm/dry/pink. left wrist injury. General: Appears in no apparent distress. comfortable, Behavior is calm, cooperative. Pain: Complains of pain in left arm. Neuro: Level of Consciousness is awake, alert, obeys commands, Oriented to person, place, time, situation. Respiratory: Airway is patent Respiratory effort is even, unlabored, Respiratory pattern is regular, symmetrical. Musculoskeletal: Circulation, motion, and sensation intact. Capillary refill < 3 seconds, Range of motion: limited in left wrist. 09:03 Reassessment: Patient appears in no apparent distress at this time. Patient and/or db family updated on plan of care and expected duration. Pain level reassessed. Patient is alert, oriented x 3, equal unlabored respirations, skin warm/dry/pink. Patient states feeling better. Musculoskeletal: Circulation, motion, and sensation intact. Capillary refill < 3 seconds, Range of motion: intact in all extremities. Vital Signs: 07:52 BP 154 / 80; Pulse 80; Resp 16; Temp 98; Pulse Ox 96% on R/A; Weight 84.82 kg; Height 4 ll1 ft. 11 in. ; Pain 6/10; 09:03 BP 156 / 78; Pulse 80; Resp 16; Pulse Ox 98% ; db 07:52 Body Mass Index 37.77 (84.82 kg, 149.86 cm) ll1 07:52 Pain Scale: Adult ll1 ED Course: 07:43 Patient arrived in ED. as 07:43 Milton Sims MD is Private Physician. as 07:47 Arm band placed on Patient placed in an exam room, on a stretcher. ll1 07:49 Aaron Mohamud MD is Attending Physician. sp3 07:53 Triage completed. ll1 07:57 Deisy Rivera, RN is Primary Nurse. db 08:04 Wrist Left (2 View) XRAY In Process Unspecified. EDMS 08:27 Geovany Castro MD is Referral Physician. sp3 09:02 LEFT WRIST SPLINT. db 09:03 Patient has correct armband on for positive identification. Provided Education on: db DISCHARGE. 09:03 No provider procedures requiring assistance completed. Patient did not have IV access db during this emergency room visit. Administered Medications: 08:04 Drug: Ibuprofen PO 600 mg PO once Route: PO; db 09:04 Follow up: Response: No adverse reaction db Medication: 09:03 VIS not applicable for this client. db Outcome: 08:27 Discharge ordered by MD. sp3 09:03 Discharged to home ambulatory, db 09:03 Condition: stable 09:03 Discharge instructions given to patient, Instructed on discharge instructions, follow up and referral plans. 09:04 Patient left the ED. db Signatures: Dispatcher [employer] EDMS Dnaielle Leos Lynsay, RN RN ll1 Aaron Mohamud MD MD sp3 Deisy Rivera, RN RN db Corrections: (The following items were deleted from the chart) 07:54 07:53 Musculoskeletal: Circulation, motion, and sensation intact. Capillary refill < 3 ll1 seconds, ll1
--- NOTE | 2023-08-04 08:32 | RAD REPORT ---
EXAM DESCRIPTION: RAD - Wrist Left 2 View - 08/04/2023 8:03 am CLINICAL HISTORY: Left wrist pain FINDINGS: A limited two-view series. No fracture or dislocation is seen. If the patient continues to have symptoms to suggest an occult fracture then a followup plain film se yobani in 7 days would be recommended
[2023-08-04 09:23] VITALS: BP 156/78; TEMP 98; O2SAT 98
== END 2023-08-04 09:04 | disposition home or self-care (01) ==
LOC: ER 07:41
DX: S63.502A Unspecified sprain of left wrist, initial encounter (principal); Z88.0 Allergy status to penicillin; Z88.1 Allergy status to other antibiotic agents; Z88.2 Allergy status to sulfonamides
CPT/HCPCS: 99283

== ENCOUNTER 2023-12-08 00:19 | Emergency (ER) | payer OTHER, SELFPAY ==
--- OUTSIDE RECORDS SUMMARY | 2023-12-08 00:25 | XMS REPORT | Continuity of Care Document ---
Author Name Unknown Address [address] [facility] [place] [address] [facility] Address [address] [facility] [place] [address] Care Team Providers Care Research Attorney Name Role Phone Shashi Sims Attending Clinician Unavailable Shashi Sims Admitting Clinician Unavailable Payers Payer Name Policy Type Policy Number Effective Date Expirati on Date Source AETNA C1 [id number] Common [facility] AETNA C1 [id number] [facility] AETNA C1 [id number] [facility] Allergies, Adverse Reactions, Alerts Allergy Name Allergy Type Status Severity Reaction(s) Onset Date Inactive Date Treating Clinician Comments Source penicill in G penicill in G Active Unknown [facility] Social History Social Habit Start Date Stop Date Quantity Comments Source History of Tobacco Use [facility] Sex Assigned At [facility] Smoking Status Start Date Stop Date Source Never Smoker [facility] Medications Ordered Medication Name Filled Medication Name Start Date Stop Date Current Medication? Ordering Clinician Indication Dosage Frequency Signature (SIG) Comments Components Source Metoprolol Succinate ER 50 MG Metoprolol Succinate ER 50 MG No 1{table t} QD Metoprolol Succinate ER 50 MG Diclofenac Sodium Diclofenac Sodium No Diclofenac Sodium Lopressor 50 MG Lopressor 50 MG No 1{table t_with_ food} Lopressor 50 MG Coreg Coreg No Coreg Cyclobenzap rine HCl Cyclobenzap rine HCl No Cyclobenza rubio HCl amLODIPine Besylate 5 MG amLODIPine Besylate 5 MG No 1{table t} QD amLODIPine Besylate 5 MG Aspir-81 Aspir-81 No Aspir-81 Metoprolol Succinate ER 50 MG Metoprolol Succinate ER 50 MG No 1{table t} QD Metoprolol Succinate ER 50 MG Diclofenac Sodium Diclofenac Sodium No Diclofenac Sodium Lopressor 50 MG Lopressor 50 MG No 1{table t_with_ food} Lopressor 50 MG Coreg Coreg No Coreg Cyclobenzap rine HCl Cyclobenzap rine HCl No Cyclobenza rubio HCl amLODIPine Besylate 5 MG amLODIPine Besylate 5 MG No 1{table t} QD amLODIPine Besylate 5 MG Aspir-81 Aspir-81 No Aspir-81 Metoprolol Succinate ER 50 MG Metoprolol Succinate ER 50 MG No 1{table t} QD Metoprolol Succinate ER 50 MG Aspir-81 Aspir-81 No Aspir-81 Cyclobenzap rine HCl Cyclobenzap rine HCl No Cyclobenza rubio HCl Lopressor 50 MG Lopressor 50 MG No 1{table t_with_ food} Lopressor 50 MG Coreg Coreg No Coreg amLODIPine Besylate 5 MG amLODIPine Besylate 5 MG No 1{table t} QD amLODIPine Besylate 5 MG Diclofenac Sodium Diclofenac Sodium No Diclofenac Sodium Vital Signs Vital Name Observation Time Observation Value Comments S laura height 2021-04-06 08:00:00 59 [in_i] Commo n [facility] weight 2021-04-06 08:00:00 202.6 [lb_av] Co [facility] bmi 2021-04-06 08:00:00 40.92 kg/m2 Comm on [facility] blood pressure systolic 2021-04-06 08:00:00 134 mm[Hg] Common [facility] blood pressure diastolic 2021-04-06 08:00:00 76 mm[Hg] Common [facility] height 2021-03-23 08:30:00 59 [in_i] Commo n [facility] weight 2021-03-23 08:30:00 200.3 [lb_av] Co mmon [facility] temperature 2021-03-23 08:30:00 98.0 [degF] Com mon [facility] bmi 2021-03-23 08:30:00 40.45 kg/m2 Comm on [facility] blood pressure systolic 2021-03-23 08:30:00 118 mm[Hg] [facility] blood pressure diastolic 2021-03-23 08:30:00 78 mm[Hg] [facility] Encounters Start Date/Time End Date/Time Encounter Type Admission Type Attending [facility] Emergency Department Facility Care Department Encounter ID Source 2021-10-06 13:30:46 Outpatient Sims, Shashi STLMLC STLMLC [id number] [facility] 2021-10-06 13:25:05 Outpatient STLMLC STLMLC [id number] [facility] 2021-04-06 00:00:00 2021-04-06 00:00:00 OFFICE VISIT EST PT LEVEL 3 STLMLC STLMLC [id number] [facility] 2021-03-30 00:00:00 2021-03-30 00:00:00 (TEL) STLMLC STLMLC [id number] [facility] 2021-03-23 00:00:00 2021-03-23 00:00:00 CONSULT - OFFICE, L3 STLMLC STLMLC [id number] [facility]
[2023-12-08] MEDS ORDERED: ACETAMINOPHEN 500 MG TAB ONE (00:37)
[2023-12-08] MEDS ORDERED: ONDANSETRON 4 MG/2 ML VIAL ONE (00:37)
[2023-12-08] MEDS ORDERED: NA CHLORIDE 0.9% 2,000 ML ONE (00:38)
[2023-12-08 01:15] LABS: Absolute Lymphocytes (CBC) 0.4 K/uL (0.7-4.9); Absolute Monocytes 0.2 K/uL (0.1-1.3); Absolute Neutrophil 7.5 K/uL (1.8-8.0); Basophils % 0.6 % (0-1.3); Eosinophils % 0.1 % (0-4.4); Hematocrit 43.9 % (36.0-45.0); Hemoglobin 14.2 g/dL (12.0-15.0); Lymphocytes % 4.8 % (15.3-44.8); MCH 28.8 pg (27.0-35.0); MCHC 32.4 g/dL (32.0-36.0); MCV 88.9 fL (80-100); MPV 9.9 fL (7.6-11.3); Monocytes % 2.5 % (3.3-12.3); Platelets 297 thou/uL (152-406); RBC Red Blood Cell Count 4.94 M/uL (3.86-4.86); Red Cell Distribution Width 14.1 % (12.1-15.2)
[2023-12-08 01:23] LABS: PT Prothrombin Time 11.4 SECONDS (9.5-12.5); Protime INR 1.04
[2023-12-08 01:38] LABS: ALT/SGPT 39 U/L (13-56); AST/SGOT 26 U/L (15-37); Albumin 3.5 g/dL (3.4-5.0); Albumin/Globulin Ratio 0.9 (1.1-1.8); Alkaline Phosphatase 76 U/L (45-117); Anion Gap 10.8 mEq/L (5.0-15.0); BUN Blood Urea Nitrogen 21 mg/dL (7-18); Bicarbonate 25 mEq/L (21-32); Bilirubin Total 0.4 mg/dL (0.2-1.0); Globulin 4.1 g/dL (2.3-3.5); Glomerular Filtration Rate 67 ml/min (=/>90); Glucose Level 148 mg/dL (74-106); Magnesium 1.8 mg/dL (1.6-2.4); NT PRO-BNP 77 pg/mL (<125); Potassium 3.8 mEq/L (3.5-5.1); Protein, Total 7.6 g/dL (6.4-8.2); Sodium Level 135 mEq/L (136-145)
[2023-12-08 01:39] LABS: Bilirubin Direct < 0.1 mg/dL (0-0.2); Bilirubin Indirect, Calculated ND mg/dL (0.2-0.8); Troponin High Sensitivity < 3.0 pg/mL (<58.9)
[2023-12-08 02:22] LABS: SARS-CoV-2 Antigen CONTROL BLUE LINE VIS/BG OK; SARS-CoV-2 Antigen Rapid Res Negative (Negative)
[2023-12-08 02:54] LABS: Specific Gravity > 1.030 (1.005-1.030); Sqamous Epithelial <5 /HPF (None Seen); Urine Bacteria <20 /HPF (<20); Urine Bilirubin NEGATIVE (Negative); Urine Blood Negative (Negative); Urine Clarity Extremely Turbid (Clear); Urine Color Yellow (Yellow); Urine Culture Reflex Order REFLEXED; Urine Glucose NEGATIVE (Negative); Urine Ketones NEGATIVE (Negative); Urine Micro Reflex YN NO BILL MICROSCOPIC; Urine Mucus 1+ /HPF (None Seen); Urine Nitrite NEGATIVE (Negative); Urine Protein 1+ (Negative); Urine Urobilinogen Normal (Normal); Urine WBC 20-50 /HPF (<5); Urine WBC Clump Rare /HPF (None Seen); Urine Yeast (Budding) Trace /HPF (None Seen); Urine pH 5.5 (5.0-7.0)
[2023-12-08] MEDS ORDERED: KETOROLAC 30 MG/ML INJ ONE (03:38)
[2023-12-08] MEDS ORDERED: METOCLOPRAMIDE 10 MG/2mL INJ ONE (03:39)
--- NOTE | 2023-12-08 03:59 | EDPHYS ---
Physician Documentation [facility] Name: Haylee Gamboa Age: 53 yrs Sex: Female : 1970 Arrival Date: 12/08/2023 Time: 00:19 Bed Treatment Private MD: ED Physician Harjinder Pace HPI: 12/07 03:54 This 53 yrs old Female presents to ER via Wheelchair with complaints of Fever. sp4 03:54 53-year-old female presents with acute near syncopal episode at work today. Patient sp4 manifested with nausea vomiting dizziness and fever. . 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 - Family history:: not pertinent. - Social history:: Smoking status: Patient denies any tobacco usage or history of. ROS: 03:54 Constitutional: Positive fever, positive nausea and vomiting, positive dizziness sp4 03:54 All other systems are negative, Exam: 03:54 Constitutional: This is a well developed, well nourished patient who is awake, alert, sp4 and in no acute distress. Head/Face: Normocephalic, atraumatic. Eyes: Pupils equal round and reactive to light, extra-ocular motions intact. Lids and lashes normal. Conjunctiva and sclera are not injected. Cornea within normal limits. Periorbital areas with no swelling, redness, or edema. ENT: Nares patent. No nasal discharge, no septal abnormalities noted. Tympanic membranes are normal and external auditory canals are clear. Oropharynx with no redness, swelling, or masses, exudates, or evidence of obstruction, uvula midline. Mucous membranes moist. Neck: Trachea midline, no thyromegaly or masses palpated, and no cervical lymphadenopathy. Supple, full range of motion without nuchal rigidity, or vertebral point tenderness. Chest/axilla: Normal chest wall appearance and motion. Nontender with no deformity. No lesions are appreciated. Cardiovascular: Regular rate and rhythm with a normal S1 and S2. No gallops, murmurs, or rubs. Normal PMI, no JVD. No pulse deficits. Respiratory: Lungs have equal breath sounds bilaterally, clear to auscultation and percussion. No rales, rhonchi or wheezes noted. No increased work of breathing, no retractions or nasal flaring. Abdomen/GI: Soft, with normal bowel sounds. No distension or tympany. No guarding or rebound. No evidence of tenderness throughout. Back: No spinal tenderness. No costovertebral tenderness. Skin: Warm, dry with normal turgor. Normal color with no rashes, no lesions, and no evidence of cellulitis. MS/ Extremity: Pulses equal, no cyanosis. Neurovascular intact. Full, normal range of motion. Neuro: Awake and alert, GCS 15, oriented to person, place, time, and situation. Cranial nerves II-XII grossly intact. Motor strength 5/5 in all extremities. Sensory grossly intact. Psych: Awake, alert, with orientation to person, place and time. Behavior, mood, and affect are within normal limits Vital Signs: 00:29 BP 122 / 62; Pulse 87; Resp 16; Temp 99.2; Pulse Ox 92% ; Weight 92.53 kg; Height 4 ft. pf1 11 in. ; Pain 5/10; 01:30 BP 109 / 57; Pulse 63; Resp 16; Pulse Ox 100% on R/A; pf1 02:30 BP 107 / 52; Pulse 67; Resp 16; Pulse Ox 97% on R/A; pf1 03:30 BP 115 / 57; Pulse 73; Resp 16; Temp 99; Pulse Ox 100% on R/A; Pain 2/10; pf1 00:29 Body Mass Index 41.20 (92.53 kg, 149.86 cm) pf1 00:29 Pain Scale: Adult pf1 03:30 Pain Scale: Adult pf1 Rudy Coma Score: 03:54 Eye Response: spontaneous(4). Motor Response: obeys commands(6). Verbal Response: sp4 oriented(5). Total: 15. MDM: 00:23 Patient medically screened. sp4 03:54 Differential diagnosis: viral Infection, bacterial infection, URI, bronchitis, sp4 pneumonia UTI. Data reviewed: vital signs, nurses notes, old medical records, lab test result(s), radiologic studies, plain films. ED course: Patient has signs of mild UTI but otherwise unremarkable workup. Chest x-ray is negative, stable for discharge home. 03:57 ED course: EXAM DESCRIPTION: Chest Single View CLINICAL HISTORY: near syncope 4 COMPARISON: None FINDINGS: Cardiac silhouette is within normal limits. EKG leads project over the chest. There is no focal parenchymal or pleural disease. There is no acute osseous process visualized. IMPRESSION: No evidence of acute cardiopulmonary disease. . 12/07 00:23 Order name: Basic Metabolic Panel; Complete Time: 03:47 sp4 12/07 00:23 Order name: CBC with Diff; Complete Time: 03:47 sp4 12/07 00:23 Order name: LFT's; Complete Time: 03:47 sp4 12/07 00:23 Order name: Magnesium; Complete Time: 03:47 sp4 12/07 00:23 Order name: NT PRO-BNP; Complete Time: 03:47 sp4 12/07 00:23 Order name: PT-INR; Complete Time: 03:47 sp4 12/07 00:23 Order name: Troponin HS; Complete Time: 03:47 sp4 12/07 00:24 Order name: SARS RAPID; Complete Time: 03:47 sp4 12/07 00:24 Order name: Influenza Screen (a \T\ B); Complete Time: 03:47 sp4 12/07 00:24 Order name: Urinalysis W/Microscopic; Complete Time: 03:47 sp4 12/07 02:58 Order name: Urine Culture EDCA 12/07 00:23 Order name: XRAY Chest (1 view) sp4 12/07 00:23 Order name: EKG; Complete Time: 00:24 sp4 12/07 00:23 Order name: Cardiac monitoring; Complete Time: 00:54 sp4 12/07 00:23 Order name: EKG - Nurse/Tech; Complete Time: 00:54 sp4 12/07 00:23 Order name: IV Saline Lock; Complete Time: 00:54 sp4 12/07 00:23 Order name: Labs collected and sent; Complete Time: 00:54 sp4 12/07 00:23 Order name: O2 Per Protocol; Complete Time: 00:54 sp4 12/07 00:23 Order name: O2 Sat Monitoring; Complete Time: 00:39 sp4 Administered Medications: 00:53 Drug: NS 0.9% IV 1000 ml IV at 1 bolus Per protocol; 1000 mL bolus Route: IV; Rate: 1 pf1 bolus; Site: left antecubital; 01:50 Follow up: Response: No adverse reaction; Marked relief of symptoms; IV Status: pf1 Completed infusion; IV Intake: 1000ml 07:35 Follow up: Response: No adverse reaction; Marked relief of symptoms; IV Status: pf1 Completed infusion; IV Intake: 1000ml 00:53 Drug: Ondansetron IVP 4 mg IVP once; over 2 minutes Route: IVP; Site: left antecubital; pf1 01:50 Follow up: Response: No adverse reaction; Marked relief of symptoms; Vomiting decreased pf1 00:53 Drug: Acetaminophen PO 1000 mg PO once Route: PO; pf1 01:50 Follow up: Response: No adverse reaction; Marked relief of symptoms; Temperature is pf1 decreased 00:54 Drug: NS 0.9% IV 1000 ml IV at 125 ml/hr continuous Route: IV; Rate: 125 ml/hr; Site: pf1 left antecubital; 04:15 Follow up: Response: No adverse reaction; Marked relief of symptoms; IV Status: pf1 Completed infusion; IV Intake: 500ml 03:40 Drug: Ketorolac IVP 30 mg IVP once Route: IVP; Site: left antecubital; pf1 04:15 Follow up: Response: No adverse reaction; Marked relief of symptoms; Pain is decreased pf1 03:40 Drug: metoCLOPramide IVP 10 mg IVP once; over 1 to 2 minutes Route: IVP; Site: left pf1 antecubital; 04:15 Follow up: Response: No adverse reaction; Marked relief of symptoms; Pain is decreased pf1 Disposition Summary: 12/08/23 03:58 Discharge Ordered Problem: new sp4 Symptoms: have improved sp4 Condition: Stable sp4 Diagnosis - UTI/ Urinary tract infection, site not specified sp4 - Fever, unspecified sp4 - Acute viral gastroenteritis sp4 Followup: sp4 - With: Private Physician - When: 7 - 10 days - Reason: Recheck today's complaints Discharge Instructions: - Discharge Summary Sheet sp4 - Urinary Tract Infection, Adult, [id number] sp4 - Fever, Adult, [id number] sp4 Forms: - Patient Portal Instructions sp4 Prescriptions: - ondansetron 4 mg Oral Tablet,disintegrating - take 1 tablet ORAL route every 6 hours for 3 days PRN nausea; 30 tablet; sp4 Refills: 0, Product Selection Permitted - Cephalexin 500 mg Oral Capsule - take 1 capsule ORAL route every 12 hours for 10 days; 20 capsule; Refills: 0, sp4 Product Selection Permitted Signatures: Dispatcher [employer] Samantha Akers RN RN pf1 Harjinder Pace MD MD sp4
--- NOTE | 2023-12-08 03:59 | ER ---
Nurse's Notes [facility] Name: Haylee Gamboa Age: 53 yrs Sex: Female : 1970 Arrival Date: 12/08/2023 Time: 00:19 Bed Treatment Private MD: Diagnosis: UTI/ Urinary tract infection, site not specified;Fever, unspecified;Acute viral gastroenteritis Presentation: 12/07 00:29 Chief complaint: Patient states: C/o of nausea/vomiting and diarrhea. Fever today was pf1 102. Clammy and feels like passing out. Coronavirus screen: Vaccine status: Patient reports receiving the 2nd dose of the covid vaccine. Ebola Screen: Patient negative for fever greater than or equal to 101.5 degrees Fahrenheit, and additional compatible Ebola Virus Disease symptoms. Initial Sepsis Screen: Does the patient meet any 2 criteria? No. Patient's initial sepsis screen is negative. Risk Assessment: Do you want to hurt yourself or someone else? Patient reports no desire to harm self or others. Onset of symptoms was December 07, 2023. 00:29 Method Of Arrival: Wheelchair pf1 00:29 Acuity: LOWELL 3 pf1 00:29 Initial Sepsis Screen: Does the patient have a suspected source of infection? No. pf1 Patient's initial sepsis screen is negative. Triage Assessment: 00:29 General: Appears in no apparent distress. uncomfortable, well groomed, well developed, pf1 Behavior is calm, cooperative, appropriate for age, quiet. 00:29 Pain: Denies pain. Neuro: Level of Consciousness is awake, alert, obeys commands, pf1 Oriented to person, place, time, situation, Reports dizziness, since tonight. GI: Abdomen is round non-distended, Reports diarrhea, nausea, vomiting, since tonight with fever. LOGISTICS SUPPORT: 01:00 LMP N/A - Post-menopause, Not pf1 Historical: - Allergies: 00:33 PENICILLINS; pf1 00:33 Bactrim; pf1 00:33 Sulfa (Sulfonamide Antibiotics); pf1 - PMHx: 00:33 Hypertensive disorder; pf1 - PSHx: 00:33 Cholecystectomy; pf1 - Immunization history:: Adult Immunizations up to date. - Family history:: not pertinent. - Social history:: Smoking status: Patient denies any tobacco usage or history of. Screenin:30 [facility] ED Fall Risk Assessment (Adult) History of falling in the last 3 months, pf1 including since admission No falls in past 3 months (0 pts) Confusion or Disorientation No (0 pts) Intoxicated or Sedated No (0 pts) Impaired Gait No (0 pts) Mobility Assist Device Used No (0 pt) Altered Elimination No (0 pt) Score/Fall Risk Level 0 - 2 = Low Risk Oriented to surroundings, Maintained a safe environment, Educated pt \T\ family on fall prevention, incl call for assistance when getting out of bed, Assessed \T\ reinforced patient's understanding of fall precautions, Provided non-skid footwear, Hourly rounding (assess needs \T\ fall precautionary measures) done, Used ambulatory aids as needed (educated on \T\ assisted with), Used gait belt as appropriate. 00:30 Abuse screen: Denies threats or abuse. Nutritional screening: No deficits noted. pf1 Tuberculosis screening: No symptoms or risk factors identified. Assessment: 00:30 General: Appears in no apparent distress. uncomfortable, well groomed, well developed, pf1 Behavior is calm, cooperative, appropriate for age, quiet. 00:30 Pain: Denies pain. Neuro: Level of Consciousness is awake, alert, obeys commands, pf1 Oriented to person, place, time, situation, Reports dizziness, since tonight. Cardiovascular: No deficits noted. Reports dizziness Capillary refill < 3 seconds Patient's skin is warm and dry. Respiratory: No deficits noted. Airway is patent Respiratory effort is even, unlabored, Respiratory pattern is regular, symmetrical. GI: Abdomen is round non-distended, Bowel sounds present X 4 quads. Reports diarrhea, nausea, vomiting, since tonight. : No deficits noted. No signs and/or symptoms were reported regarding the genitourinary system. EENT: No deficits noted. No signs and/or symptoms were reported regarding the EENT system. Derm: No deficits noted. No signs and/or symptoms reported regarding the dermatologic system. Musculoskeletal: No deficits noted. No signs and/or symptoms reported regarding the musculoskeletal system. 01:30 Reassessment: Patient appears in no apparent distress at this time. Patient and/or pf1 family updated on plan of care and expected duration. Pain level reassessed. Patient is alert, oriented x 3, equal unlabored respirations, skin warm/dry/pink. 02:30 Reassessment: Patient appears in no apparent distress at this time. Patient and/or pf1 family updated on plan of care and expected duration. Pain level reassessed. Patient is alert, oriented x 3, equal unlabored respirations, skin warm/dry/pink. Patient states feeling better. Patient states symptoms have improved. 03:30 Reassessment: Patient appears in no apparent distress at this time. Patient and/or pf1 family updated on plan of care and expected duration. Pain level reassessed. Patient is alert, oriented x 3, equal unlabored respirations, skin warm/dry/pink. Patient states feeling better. Patient states symptoms have improved. Vital Signs: 00:29 BP 122 / 62; Pulse 87; Resp 16; Temp 99.2; Pulse Ox 92% ; Weight 92.53 kg; Height 4 ft. pf1 11 in. ; Pain 5/10; 01:30 BP 109 / 57; Pulse 63; Resp 16; Pulse Ox 100% on R/A; pf1 02:30 BP 107 / 52; Pulse 67; Resp 16; Pulse Ox 97% on R/A; pf1 03:30 BP 115 / 57; Pulse 73; Resp 16; Temp 99; Pulse Ox 100% on R/A; Pain 2/10; pf1 00:29 Body Mass Index 41.20 (92.53 kg, 149.86 cm) pf1 00:29 Pain Scale: Adult pf1 03:30 Pain Scale: Adult pf1 Rudy Coma Score: 03:54 Eye Response: spontaneous(4). Motor Response: obeys commands(6). Verbal Response: sp4 oriented(5). Total: 15. ED Course: 00:19 Patient arrived in ED. [email or web address] 00:23 Harjinder Pace MD is Attending Physician. sp4 00:29 Arm band placed on right wrist. pf1 00:29 Patient has correct armband on for positive identification. Placed in gown. Bed in low pf1 position. Call light in reach. Side rails up X2. 00:30 No provider procedures requiring assistance completed. pf1 00:30 Door closed. Noise minimized. Lights dimmed. Moved to private room. Warm blanket given. pf1 00:32 Triage completed. pf1 00:35 Latrice Thompson, RN is Primary Nurse. kd3 00:47 XRAY Chest (1 view) In Process Unspecified. EDMS 00:48 Inserted saline lock: 22 gauge in left antecubital area, using aseptic technique. Blood oe collected. 00:48 COVID swab sent to lab. Flu and/or RSV swab sent to lab. oe 00:48 Initial lab(s) drawn, by ED staff, sent to lab. pf1 01:47 Influenza Screen (a \T\ B) Sent. oe 01:47 SARS RAPID Sent. oe 01:47 CBC with Diff Sent. oe 03:00 Urine collected: clean catch specimen, clear, Amount Voided: 50mL. pf1 04:15 IV discontinued, intact, bleeding controlled, No redness/swelling at site. Pressure pf1 dressing applied. 04:15 Provided Education on: prescriptions. pf1 Administered Medications: 00:53 Drug: NS 0.9% IV 1000 ml IV at 1 bolus Per protocol; 1000 mL bolus Route: IV; Rate: 1 pf1 bolus; Site: left antecubital; 01:50 Follow up: Response: No adverse reaction; Marked relief of symptoms; IV Status: pf1 Completed infusion; IV Intake: 1000ml 07:35 Follow up: Response: No adverse reaction; Marked relief of symptoms; IV Status: pf1 Completed infusion; IV Intake: 1000ml 00:53 Drug: Ondansetron IVP 4 mg IVP once; over 2 minutes Route: IVP; Site: left antecubital; pf1 01:50 Follow up: Response: No adverse reaction; Marked relief of symptoms; Vomiting decreased pf1 00:53 Drug: Acetaminophen PO 1000 mg PO once Route: PO; pf1 01:50 Follow up: Response: No adverse reaction; Marked relief of symptoms; Temperature is pf1 decreased 00:54 Drug: NS 0.9% IV 1000 ml IV at 125 ml/hr continuous Route: IV; Rate: 125 ml/hr; Site: pf1 left antecubital; 04:15 Follow up: Response: No adverse reaction; Marked relief of symptoms; IV Status: pf1 Completed infusion; IV Intake: 500ml 03:40 Drug: Ketorolac IVP 30 mg IVP once Route: IVP; Site: left antecubital; pf1 04:15 Follow up: Response: No adverse reaction; Marked relief of symptoms; Pain is decreased pf1 03:40 Drug: metoCLOPramide IVP 10 mg IVP once; over 1 to 2 minutes Route: IVP; Site: left pf1 antecubital; 04:15 Follow up: Response: No adverse reaction; Marked relief of symptoms; Pain is decreased pf1 Medication: 04:00 VIS not applicable for this client. pf1 Intake: 01:50 IV: 1000ml; Total: 1000ml. pf1 04:15 IV: 500ml; Total: 1500ml. pf1 07:35 IV: 1000ml; Total: 2500ml. pf1 Outcome: 03:58 Discharge ordered by . sp4 04:14 Discharged to home ambulatory, pf1 04:14 Condition: improved 04:14 Discharge instructions given to patient, Instructed on discharge instructions, follow up and referral plans. Demonstrated understanding of instructions, follow-up care, medications, Prescriptions given X 2, 04:15 Patient left the ED. pf1 Signatures: Dispatcher [employer] EDMS Alton Tam Jennifer [email or web address] Latrice Thompson RN RN kd3 Samantha Le RN RN pf1 Harjinder Pace MD MD sp4 Corrections: (The following items were deleted from the chart) 07:31 00:29 Acuity: LOWELL 4 pf1 pf1
[2023-12-08 04:22] VITALS: BP 122/62; TEMP 99.2; O2SAT 92
--- NOTE | 2023-12-08 17:33 | RAD REPORT ---
EXAM DESCRIPTION: Chest Single View CLINICAL HISTORY: Near syncope COMPARISON: None FINDINGS: Cardiac silhouette is within normal limits. EKG leads project over the chest. There is no focal parenchymal or pleural disease. There is no acute osseous process visualized. IMPRESSION: No evidence of acute cardiopulmonary disease. Electronically signed by: Dustin Redd MD 12/08/2023 01:04 AM CDT Due to temporary technical issues with the PACS/Fluency reporting system, reports are being signed by the in house radiologists without review as a courtesy to insure prompt reporting. The interpreting radiologist is fully responsible for the content of the report.
== END 2023-12-08 04:15 | disposition home or self-care (01) ==
LOC: ER 00:19
DX: N39.0 Urinary tract infection, site not specified (principal); A08.4 Viral intestinal infection, unspecified; I10 Essential (primary) hypertension; Z11.52 Encounter for screening for COVID-19; Z88.0 Allergy status to penicillin; Z88.1 Allergy status to other antibiotic agents; Z88.2 Allergy status to sulfonamides
CPT/HCPCS: 36415; 71045; 80048; 80076; 81001; 83735; 83880; 84484; 85025; 85610; 87086; 87088; 87804; 87811; 96361; 96374; 96375; 99284; J2405; J2765; J7030